=== PATIENT | female | born 1950 | race Caucasian/White ===

== ENCOUNTER 2022-07-04 09:28 | Inpatient (IN) | payer MEDICARE, SELFPAY ==
[2022-07-04] VITALS (14 sets, daily range): BP systolic 148–201; BP diastolic 69–82; PULSE 72–84; RESP 16–22; TEMP 36.8–37.2; O2SAT 92–97; BMI 34.9; BMI 36.6
--- NOTE | 2022-07-04 09:33 | ECG_ITS ---
APPROVED REPORT Exam: Resting ECG HR:74 bpm ECG Measurements Heart Rate 74 AXES ND 117 P 50 QRSd 98 QRS 45 QT 388 T 171 QTc 416 Conclusion SINUS RHYTHM WITH SHORT ND INTERVAL LEFT VENTRICULAR HYPERTROPHY AND ST-T CHANGE [VOLTAGE CRITERIA PLUS ST/T ABNORMALITY] ABNORMAL ECG UNCONFIRMED REPORT Electronically signed by : Jose Carlos Bah MD 07/05/2022 07:45:41
--- NOTE | 2022-07-04 09:33 | HMH.EDGENADL ---
Discharge Plan Disposition Chief Complaint: Shortness of Breath/Dyspnea Clinical Impressions Clinical Impression: Pulmonary edema, Bilateral pleural effusion, Decompensated heart failure, Hypoxemia, MADAY (acute kidney injury), Acute UTI Discharge ED Provider: David Grissom General Adult HPI General Chief complaint: Shortness of Breath/Dyspnea Stated complaint: soa Time Seen by Provider: 07/04/22 09:34 History of Present Illness HPI narrative: Patient is a 71-year-old presenting from [facility] for hypoxemia. Patient has dementia at baseline and history is limited. She and EMS state that she was found to be hypoxic with 70s on room air this morning patient is not on home oxygen she denies any history of any COPD or CHF but did not have any old records to confirm or deny this. She denies any fevers chills or cough but does states she has had bilateral lower extremity swelling for an undifferentiated period of time. She was on 4 L nasal cannula with sats in the 90s upon arrival. Related Data Allergies Allergy/AdvReac Type Severity Reaction Status Date / Time benzocaine Allergy Verified 07/04/22 09:49 [From Chloraseptic Sore Throat] ciprofloxacin [From Cipro] Allergy Verified 07/04/22 09:49 diazepam [From Valium] Allergy Verified 07/04/22 09:49 ibuprofen [From Motrin] Allergy Verified 07/04/22 09:49 menthol Allergy Verified 07/04/22 09:49 morphine Allergy Verified 07/04/22 09:49 nitrofurantoin Allergy Verified 07/04/22 09:49 [From Macrobid] ondansetron [From Zofran] Allergy Verified 07/04/22 09:49 propoxyphene Allergy Verified 07/04/22 09:49 sulfamethoxazole Allergy Verified 07/04/22 09:49 [From Bactrim] trimethoprim [From Bactrim] Allergy Verified 07/04/22 09:49 [facility] Disclaimer: The information contained in this section may have been updated after the patient was seen, as this information can be updated by other users. Social History Smoking Status: Never smoker alcohol intake: never current occupational status: other Travel in the last 8 weeks: None ROS Obtained: Yes All systems reviewed & no additional complaints except as documented Physical Exam General General appearance: alert and in no apparent distress Respiratory Respiratory exam: Present normal lung sounds bilaterally and other (Pulse ox on room air was 75, 5 L in the low 90s); Absent respiratory distress Cardiovascular Cardiovascular exam: Present regular rate and other (Bilateral lower extremity pitting edema diminished base lung sounds); Absent tachycardia Abdominal Exam Abdominal exam: Present soft; Absent tenderness Neurological Exam Neurological exam: Present alert Medical Decision Making Johny Inquiry Pt receiving controlled substance: No Vital Signs: 07/04/22 09:37 07/04/22 09:30 07/04/22 10:00 Temperature 98.4 F Temperature Source Oral Pulse Rate 76 72 Pulse Rate [Left] 75 Respiratory Rate 20 Blood Pressure 160/75 H 175/77 H Blood Pressure [Right Arm] 160/75 H Blood Pressure Mean 80 109 Blood Pressure Mean [Right Arm] 103 02 Sat by Pulse Oximetry 92 L 93 L 93 L Oxygen Delivery Method Nasal Cannula Nasal Cannula Nasal Cannula Oxygen Flow Rate (LPM) 4 5 4 07/04/22 10:17 07/04/22 10:31 07/04/22 11:00 Temperature Temperature Source Pulse Rate 76 73 74 Pulse Rate [Left] Respiratory Rate 19 20 18 Blood Pressure 178/74 H 166/72 H 181/76 H Blood Pressure [Right Arm] Blood Pressure Mean 99 99 88 Blood Pressure Mean [Right Arm] 02 Sat by Pulse Oximetry 92 L 92 L 96 Oxygen Delivery Method Nasal Cannula Nasal Cannula Oxygen Flow Rate (LPM) 4 4 07/04/22 11:31 Temperature Temperature Source Pulse Rate 76 Pulse Rate [Left] Respiratory Rate 18 Blood Pressure 148/73 H Blood Pressure [Right Arm] Blood Pressure Mean 98 Blood Pressure Mean [Right Arm] 02 Sat by Pulse Oximetry 97 Oxygen Delivery Method Nasal Cannula
--- NOTE | 2022-07-04 09:34 | XR_ITS ---
FINAL REPORT CLINICAL HISTORY: Shortness of breath COMPARISON: None FINDINGS: A single portable view of the chest was obtained. Cardiomegaly is noted. There is mild pulmonary vascular congestion. The mediastinum is within normal limits. Mild bibasilar opacities may represent atelectasis or pneumonia. The bony thorax is intact. IMPRESSION: Mild bibasilar opacities, favor atelectasis or pneumonia. Reviewed, Interpreted and Dictated by Santo Bryan III, MD Transcribed by Thao Dimas Authenticated and [facility][1]
[2022-07-04 09:48] LABS: VBG Base Excess -3.7 mmol/L (-2.4-2.3); VBG HCO3 21.4 mmol/L (23-30); VBG Oxygen Saturation 94.7 % (50-70); VBG PCO2 36.9 mmol/L (35-51); VBG PH 7.38 mmol/L (7.31-7.41); VBG PO2 73.9 mmol/L (28-40); VBG Total CO2 22.5 mmol/L (23-27)
[2022-07-04 09:52] LABS: Basophils % 0.4 % (0.1-2.0); Hematocrit 28.9 % (37.0-47.0); Hemoglobin 9.4 g/dL (12.2-16.2); Lymphocytes # 1.8 K/mm3 (0.7-4.5); Lymphocytes % 27.3 % (10-50); Mean Corpuscular HGB Conc 32.6 g/dL (31.8-35.4); Mean Corpuscular Hemoglobin 30.8 pg (27.0-31.2); Mean Corpuscular Volume 94.5 fl (81-99); Mean Platelet Volume 8.1 fl (7.4-10.4); Monocytes # 0.3 K/mm3 (0.1-1.0); Monocytes % 5.3 % (1.7-9.3); Neutrophils # 4.4 K/mm3 (1.8-7.8); Neutrophils % 66.9 % (37.0-80.0); Platelet Count 448 K/mm3 (142-424); Red Blood Count 3.06 M/mm3 (4.20-5.40); Red Cell Distribution Width 14.2 % (11.5-17.5); White Blood Count 6.5 K/mm3 (4.8-10.8)
[2022-07-04 10:01] LABS: Magnesium 2.2 mg/dl (1.6-2.3)
--- NOTE | 2022-07-04 10:01 | PC.NURSE ---
Patient's BP 175/77. MD instructed to hold off on Nitro.
[2022-07-04 10:02] LABS: Alanine Aminotransferase 18 U/L (12-78); Albumin Level 3.5 g/dl (3.5-5.0); Albumin/Globulin Ratio 1.2 (1.1-1.8); Alkaline Phosphatase 82 U/L (38-126); Anion Gap 15.2 mEq/L (5-15); Aspartate Amino Transferase 25 U/L (14-36); Bilirubin,Total 0.6 mg/dl (0.2-1.3); Blood Urea Nitrogen 31 mg/dl (7-17); Carbon Dioxide 25 mmol/L (22.0-30.0); Chloride 101 mmol/L (98-107); Creatinine Clearance Estimated 38 mL/min (50-200); Estimated Glomerular Filt Rate 24 ml/min (>60); GFR (African American) 30 ML/MIN (>60); Glucose 151 mg/dl (74-100); Potassium 4.2 mmoL/L (3.5-5.1); Sodium 137 mmol/L (136-145); Total Protein,Serum 6.5 g/dl (6.3-8.2)
[2022-07-04 10:07] LABS: D-Dimer 1.87 ug/mL (0.0-0.5)
[2022-07-04 10:09] LABS: Microscopic, Urine URINE MICROSCOPIC (MICROSCOPIC)
[2022-07-04 10:11] LABS: Appearance,Urine CLEAR (Clear); Bilirubin,Urine Negative (Negative); Blood, Urine 1+ (Negative); Color,Urine YELLOW (Yellow); Glucose,Urine (UA) Negative (Negative); Ketones,Urine Negative (Negative); Leukocyte Esterase,Urine 2+ (Negative); Nitrate,Urine Negative (Negative); Protein,Urine 3+ (Negative)
[2022-07-04 10:17] LABS: NT Pro Brain Natriuretic Pep. 6960 pg/mL (0-125)
[2022-07-04 10:21] LABS: Bacteria,Urine 1+ /lpf; RBC,Urine Occasional #/hpf (0-3); Squamous Epithelial Cell,Urine Occasional #/hpf (0-5)
[2022-07-04 10:29] LABS: Troponin I < 0.01 ng/ml (0.00-0.034)
[2022-07-04 10:57] LABS: Coronavirus 19, PCR Not Detected (NotDetected); Influenza A, PCR Not Detected (NotDetected); Influenza B, PCR Not Detected (NotDetected)
--- NOTE | 2022-07-04 11:18 | PC.NURSE ---
spoke to care mangement for bed assignment
--- NOTE | 2022-07-04 11:33 | PC.NURSE ---
Rounded on patient; call light within reach
--- NOTE | 2022-07-04 12:14 | PC.NURSE ---
Report received from Alaina
--- NOTE | 2022-07-04 13:26 | PC.NURSE ---
Patient being transported up to the second floor accompanied by second floor staff
[2022-07-04 13:33] LABS: Troponin I < 0.01 ng/ml (0.00-0.034)
--- NOTE | 2022-07-04 13:33 | PC.NURSE ---
arrived to floor by stretcher from ED
[2022-07-04 16:17] LABS: Troponin I < 0.01 ng/ml (0.00-0.034)
--- NOTE | 2022-07-04 17:27 | EXP.HP ---
History of Present Illness *Admission Date: 07/04/22 *Reason for visit:: short of breath *History of present illness: Ms. Moore is a pleasant 71-year-old female with dementia who presents from [facility]. Presented because of hypoxia noted on routine vital check at her nursing facility today. She denies any cough, chest pain, nausea or vomiting. Work-up in the ER initiated with imaging and labs. Labs concerning for elevated BNP of approximately 7000. Chest imaging showing bilateral pleural effusions. Significant 3+ edema bilateral lower extremities. Labs also concerning for elevated creatinine at 2, with unknown baseline. Initiated on Lasix for diuresis. As well she was noted to be hypertensive but this improved prior to initiating treatment in the ER. ER consulted medicine for further management and admission. Patient has new 2 L oxygen requirement. After arriving to the floor, patient states she came from her niece's home in [place], knows she is at a hospital but not where. Does know her name and birthday however. Has no significant complaints at this time. Afebrile. Blood pressure improving to 164/69. Has already put out at least 1 L of urine [facility] Disclaimer: The information contained in this section may have been updated after the patient was seen, as this information can be updated by other users. Medical History Anxiety Breast cancer CVA (cerebral vascular accident) Dementia Diabetes mellitus type 2 in obese GERD (gastroesophageal reflux disease) HLD (hyperlipidemia) HTN (hypertension) Insomnia Major depressive disorder Osteoarthritis Family History No significant family history Social History Smoking Status: Never smoker alcohol intake: never current occupational status: other Travel in the last 8 weeks: None Review of Systems Review of Systems Review of systems (narrative): 14 point review of systems performed, pertinent positives and negatives as per HPI Meds Home Medications and Allergies Home Medications Medication Instructions Recorded Confirmed Type acetaminophen 650 mg 650 mg PO Q12HP PRN OSTEOARTHRITIS 07/04/22 07/04/22 History tablet,extended release alendronate 70 mg tablet 70 mg PO MATUTE osteoporosis prevention 07/04/22 07/04/22 History amlodipine 10 mg tablet 10 mg PO DAILY BLOOD PRESSURE 07/04/22 07/04/22 History anastrozole 1 mg tablet 1 mg PO DAILY HX OF BENIGN TUMORS 07/04/22 07/04/22 History atorvastatin 20 mg tablet 20 mg PO HS Cholesterol 07/04/22 07/04/22 History bisacodyl 10 mg rectal suppository 10 mg OH DAILYP PRN Constipation 07/04/22 07/04/22 History (Dulcolax (bisacodyl)) carvedilol 6.25 mg tablet 6.25 mg PO BID BLOOD PRESSURE 07/04/22 07/04/22 History clonidine HCl 0.1 mg tablet 0.1 mg PO DAILY BLOOD PRESSURE 07/04/22 07/04/22 History dextromethorphan-guaifenesin 10 10 ml PO Q6HP PRN COUGH/CONGESTION 07/04/22 07/04/22 History mg-100 mg/5 mL oral syrup ergocalciferol (vitamin D2) 1,250 1,250 mcg PO MATUTE Supplement 07/04/22 07/04/22 History mcg (50,000 unit) capsule escitalopram oxalate 20 mg tablet 20 mg PO DAILY Depression 07/04/22 07/04/22 History insulin aspart U-100 100 unit/mL 0 unit SQ ACHS Diabetes 07/04/22 07/04/22 History subcutaneous solution lactulose 20 gram/30 mL oral 20 g PO Q8HP PRN Constipation 07/04/22 07/04/22 History solution melatonin 5 mg tablet 5 mg PO HSP PRN Insomnia 07/04/22 07/04/22 History omeprazole 20 mg capsule,delayed 20 mg PO HS Acid reflux 07/04/22 07/04/22 History release oxybutynin chloride 15 mg 15 mg PO DAILY BLADDER 07/04/22 07/04/22 History tablet,extended release 24 hr trazodone 50 mg tablet 50 mg PO HS Insomnia 07/04/22 07/04/22 History New Prescriptions to Start Prescriptions: Allergies Allergy/AdvReac Type Severity
--- NOTE | 2022-07-04 17:42 | PC.NURSE ---
1550 mls of urine out since arriving to the floor
--- NOTE | 2022-07-04 17:43 | PC.NURSE ---
Pt is alert to self. She remains on 4L NC with O2 sats measuring > 93%.Her noland is to bedside draining clear, pale urine. DNR status verified with pts son who is poa. Consent is signed an on the chart. He was updated on poc. BP has been elevated. 170/82 manually at last check. 0.1mg of clonidine administered per mar. She currently denies any complaints. Bed is locked and in the lowest position, call light is within reach.
[2022-07-04 20:00] LABS: Hemoglobin A1C 6.3 % (4.0-6.0)
[2022-07-04 20:06] LABS: Chloride 99 mmol/L (98-107); Sodium 134 mmol/L (136-145)
[2022-07-04 20:09] LABS: Blood Urea Nitrogen 29 mg/dl (7-17); Calcium 8.8 mg/dl (8.4-10.2); Carbon Dioxide 24 mmol/L (22.0-30.0); Creatinine Clearance Estimated 32 mL/min (50-200); Estimated Glomerular Filt Rate 23 ml/min (>60); GFR (African American) 28 ML/MIN (>60); Glucose 170 mg/dl (74-100)
[2022-07-04 21:38] LABS: POC Glucose,Bedside 180 (70-110)
--- NOTE | 2022-07-05 02:52 | PC.NURSE ---
Patient strangled on water when taking night time meds, HOB was up 45 degrees. Patient is mildly confused. States age as 40. 02 sats 93-98 % on 4lnc. Crackles noted in lungs. 3+ edema noted BLEs R>L. BP elevated at 2000. received Coreg 6.25 mg po at 2100, BP improved. No c/o pain.
[2022-07-05 04:00] VITALS: BMI 37.1
[2022-07-05 05:41] LABS: POC Glucose,Bedside 164 (70-110)
--- NOTE | 2022-07-05 07:23 | EXP.ACUTE.PN ---
Subjective *Date: 07/05/22 *Time: 11:03 Interval history: Patient has done well overnight with impressive diuresis. -2 L in the past 24 hours. Tolerating 4 L nasal cannula on morning rounds with saturations in the high 90s, weaned to 3 L nasal cannula. Urine showing growth with over 100,000 gram-negative rods. Patient pleasant on exam this morning. In no distress. No fever, chest pain, nausea or vomiting. Medical Exam Vital signs and Labs for Last 24 Hours: Vital Signs Temp Pulse Pulse Resp BP BP Pulse Ox 07/04/22 20:00 99.0 F 84 18 186/74 H 93 L 07/04/22 20:00 94 L 07/04/22 16:00 98.2 F 80 22 170/82 H 94 L 07/04/22 14:00 99.0 F 75 22 155/73 H 95 07/04/22 13:33 98.4 F 72 16 164/69 H 07/04/22 13:00 72 16 164/69 H 95 07/04/22 12:31 78 20 169/73 H 94 L 07/04/22 12:01 76 19 171/70 H 95 07/04/22 11:31 76 18 148/73 H 97 07/04/22 11:00 74 18 181/76 H 96 07/04/22 10:31 73 20 166/72 H 92 L 07/04/22 10:17 76 19 178/74 H 92 L 07/04/22 10:00 72 175/77 H 93 L 07/04/22 09:30 98.4 F 75 20 201/78 H 93 L 07/04/22 09:37 76 160/75 H 92 L Intake and Output 07/04/22 07/04/22 07/05/22 15:59 23:59 07:59 Intake Total 60 / 300 240 / 240 Output Total 1000 / 1950 950 / 1950 350 / 350 Balance -1000 / -1650 -890 / -1650 -110 / -110 Intake: Intake, Oral Amount 60 / 300 240 / 240 Output: Output, Urine Amount 1000 / 1950 950 / 1950 350 / 350 Other: Number of Unmeasured Voids 1 0 Number of Bowel Movements 1 Weight 85.077 kg 85.865 kg Patient Weight 07/05/22 23:59 Weight 85.865 kg Laboratory Results - last 24 hr 07/04/22 09:35: WBC 6.5, RBC 3.06 L, Hgb 9.4 L, Hct 28.9 L, MCV 94.5, MCH 30.8, MCHC 32.6, RDW 14.2, Plt Count 448 H, MPV 8.1, Neut % (Auto) 66.9, Lymph % (Auto) 27.3, [place] % (Auto) 5.3, Eos % (Auto) 0.0 L, Baso % (Auto) 0.4, Neut # (Auto) 4.4, Lymph # (Auto) 1.8, [place] # (Auto) 0.3, Eos # (Auto) 0.0, Baso # (Auto) 0.0 07/04/22 09:35: D-Dimer 1.87 H 07/04/22 09:35: Sodium 137, Potassium 4.2, Chloride 101, Carbon Dioxide 25, Anion Gap 15.2 H, BUN 31 H, Creatinine 2.00 H, Estimated Creat Clear 38, Estimated GFR 24 L, Est GFR ( Amer) 30 L, Glucose 151 H, Calcium 9.0, Total Bilirubin 0.6, AST 25, ALT 18, Alkaline Phosphatase 82, Troponin I < 0.01, NT-Pro-B Natriuret Pep 6960 H, Total Protein 6.5, Albumin 3.5, Globulin 3.0, Albumin/Globulin Ratio 1.2 07/04/22 09:35: VBG pH 7.38, VBG pCO2 36.9, VBG pO2 73.9 H, VBG HCO3 21.4 L, VBG Total CO2 22.5 L, VBG O2 Saturation 94.7 H, VBG Base Excess -3.7 L 07/04/22 09:35: Magnesium 2.2 07/04/22 09:35: Hemoglobin A1c 6.3 H 07/04/22 09:41: Urine Color Yellow, Urine Appearance Clear, Urine pH 7.0, Ur Specific [place] 1.020, Urine Protein 3+, Urine Glucose (UA) Negative, Urine Ketones Negative, Urine Blood 1+, Urine Nitrate Negative, Urine Bilirubin Negative, Urine Urobilinogen 1.0, Ur Leukocyte Esterase 2+ A, Urine RBC Occasional, Urine WBC 10-20, Ur Squamous Epith Cells Occasional, Urine Bacteria 1+ 07/04/22 10:50: SARS-CoV-2 (PCR) Not detected, Influenza A Untype (PCR) Not detected, Influenza Type B (PCR) Not detected 07/04/22 12:50: Troponin I < 0.01 07/04/22 15:45: Troponin I < 0.01 07/04/22 19:50: Sodium 134 L, Potassium 4.0, Chloride 99, Carbon Dioxide 24, Anion Gap 15.0, BUN 29 H, Creatinine 2.10 H, Estimated Creat Clear 32, Estimated GFR 23 L, Est GFR ( Amer) 28 L, Glucose 170 H, Calcium 8.8 07/04/22 21:29: POC Glucose 180 H 07/05/22 05:23: POC Glucose 164 H I & O for Labs for Last 24 Hours: Intake & Output 07/02/22 07/03/22 07/04/22 07/05/22 23:59 23:59 23:59 23:59 Intake Total 60 / 300 240 / 240 Output Total 1950 / 1950 350 / 350 Balance -1890 / -1650 -110 / -110 Weight 85.077 kg 85.865 kg Microbiology Reports for the Last 24 Hours: Microbiology 07/04/22 09:41 Urine,Catheterized Urine Culture - Preliminary
[2022-07-05 07:32] VITALS: BP 146/64; PULSE 67; RESP 16; TEMP 36.4; O2SAT 97
[2022-07-05 09:45] LABS: Basophils % 0.5 % (0.1-2.0); Eosinophils % 0.7 % (0.1-12.0); Hematocrit 25.7 % (37.0-47.0); Lymphocytes # 1.2 K/mm3 (0.7-4.5); Lymphocytes % 21.6 % (10-50); Mean Corpuscular HGB Conc 32.1 g/dL (31.8-35.4); Mean Corpuscular Hemoglobin 30.9 pg (27.0-31.2); Mean Corpuscular Volume 96.1 fl (81-99); Mean Platelet Volume 7.9 fl (7.4-10.4); Monocytes # 0.4 K/mm3 (0.1-1.0); Monocytes % 6.5 % (1.7-9.3); Neutrophils # 3.9 K/mm3 (1.8-7.8); Neutrophils % 70.8 % (37.0-80.0); Platelet Count 394 K/mm3 (142-424); Red Blood Count 2.68 M/mm3 (4.20-5.40); Red Cell Distribution Width 14.2 % (11.5-17.5); White Blood Count 5.5 K/mm3 (4.8-10.8)
[2022-07-05 09:48] LABS: Hemoglobin 8.3 g/dL (12.2-16.2)
[2022-07-05 10:48] LABS: Alanine Aminotransferase 14 U/L (12-78); Albumin Level 2.8 g/dl (3.5-5.0); Albumin/Globulin Ratio 1.2 (1.1-1.8); Alkaline Phosphatase 61 U/L (38-126); Anion Gap 14.3 mEq/L (5-15); Aspartate Amino Transferase 23 U/L (14-36); Bilirubin,Total 0.4 mg/dl (0.2-1.3); Blood Urea Nitrogen 30 mg/dl (7-17); Calcium 8.5 mg/dl (8.4-10.2); Carbon Dioxide 26 mmol/L (22.0-30.0); Chloride 101 mmol/L (98-107); Creatinine Clearance Estimated 36 mL/min (50-200); Estimated Glomerular Filt Rate 26 ml/min (>60); GFR (African American) 31 ML/MIN (>60); Globulin 2.4 g/dL (1.3-3.2); Glucose 120 mg/dl (74-100); Potassium 4.3 mmoL/L (3.5-5.1); Sodium 137 mmol/L (136-145); Total Protein,Serum 5.2 g/dl (6.3-8.2)
[2022-07-05 11:12] LABS: POC Glucose,Bedside 145 (70-110)
--- NOTE | 2022-07-05 14:17 | PC.NURSE ---
pt is currently more alert this afternoon then she was this morning. She as able to feed herself lunch and visit with her son and . Still confused but more alert.
[2022-07-05 15:21] VITALS: BP 135/61; PULSE 74; RESP 16; TEMP 37.3; O2SAT 94
[2022-07-05 17:08] LABS: POC Glucose,Bedside 178 (70-110)
[2022-07-05 18:09] LABS: Chloride 97 mmol/L (98-107); Potassium 3.8 mmoL/L (3.5-5.1); Sodium 136 mmol/L (136-145)
[2022-07-05 18:12] LABS: Anion Gap 12.8 mEq/L (5-15); Blood Urea Nitrogen 28 mg/dl (7-17); Calcium 9.1 mg/dl (8.4-10.2); Carbon Dioxide 30 mmol/L (22.0-30.0); Creatinine Clearance Estimated 31 mL/min (50-200); Estimated Glomerular Filt Rate 22 ml/min (>60); GFR (African American) 26 ML/MIN (>60); Glucose 177 mg/dl (74-100)
[2022-07-05 20:00] VITALS: BP 142/93; PULSE 79; RESP 18; TEMP 37.2; O2SAT 94
[2022-07-05 20:28] LABS: POC Glucose,Bedside 196 (70-110)
--- NOTE | 2022-07-06 03:42 | PC.NURSE ---
RESTING IN BED. NO COMPLAINTS VOICED. FINE CRACKLES NOTED AT LUNG BASES, OCCASSIONAL DRY COUGH. O2 IN USE 3LNC.
[2022-07-06 04:00] VITALS: BP 155/73; PULSE 74; RESP 18; TEMP 37.1; O2SAT 97; BMI 34.6
[2022-07-06 05:29] LABS: POC Glucose,Bedside 148 (70-110)
[2022-07-06 06:47] LABS: Basophils % 0.3 % (0.1-2.0); Eosinophils % 0.1 % (0.1-12.0); Mean Platelet Volume 7.6 fl (7.4-10.4); Red Cell Distribution Width 14.2 % (11.5-17.5)
[2022-07-06 06:53] LABS: Hematocrit 27.9 % (37.0-47.0); Lymphocytes # 1.3 K/mm3 (0.7-4.5); Lymphocytes % 19.9 % (10-50); Mean Corpuscular HGB Conc 32.2 g/dL (31.8-35.4); Mean Corpuscular Hemoglobin 30.6 pg (27.0-31.2); Mean Corpuscular Volume 94.9 fl (81-99); Monocytes # 0.3 K/mm3 (0.1-1.0); Monocytes % 5.3 % (1.7-9.3); Neutrophils # 4.8 K/mm3 (1.8-7.8); Neutrophils % 74.4 % (37.0-80.0); Platelet Count 410 K/mm3 (142-424); Red Blood Count 2.94 M/mm3 (4.20-5.40); White Blood Count 6.5 K/mm3 (4.8-10.8)
[2022-07-06 06:57] LABS: Alanine Aminotransferase 13 U/L (12-78); Albumin/Globulin Ratio 1.1 (1.1-1.8); Alkaline Phosphatase 69 U/L (38-126); Anion Gap 14.8 mEq/L (5-15); Aspartate Amino Transferase 22 U/L (14-36); Bilirubin,Total 0.4 mg/dl (0.2-1.3); Blood Urea Nitrogen 28 mg/dl (7-17); Calcium 8.5 mg/dl (8.4-10.2); Carbon Dioxide 28 mmol/L (22.0-30.0); Chloride 98 mmol/L (98-107); Creatinine Clearance Estimated 29 mL/min (50-200); Estimated Glomerular Filt Rate 22 ml/min (>60); GFR (African American) 26 ML/MIN (>60); Globulin 2.7 g/dL (1.3-3.2); Glucose 139 mg/dl (74-100); Magnesium 1.8 mg/dl (1.6-2.3); Potassium 3.8 mmoL/L (3.5-5.1); Sodium 137 mmol/L (136-145); Total Protein,Serum 5.7 g/dl (6.3-8.2)
--- NOTE | 2022-07-06 07:29 | XR_ITS ---
PROCEDURE INFORMATION: Exam: XR Chest Exam date and time: 07/06/2022 8:04 AM Age: 71 years old Clinical indication: Dyspnea TECHNIQUE: Imaging protocol: Radiologic exam of the chest. Views: 1 view. COMPARISON: CR XR CHEST PORTABLE 07/04/2022 9:37 AM FINDINGS: Lungs: Opacities in both bases may represent atelectasis or pneumonia.. Pleural spaces: There may be mild bilateral pleural effusions. Heart/Mediastinum: Stable cardiac silhouette Bones/joints: Unremarkable. IMPRESSION: 1. Opacities in both bases may represent atelectasis or pneumonia.. 2. There may be mild bilateral pleural effusions.
[2022-07-06 07:35] VITALS: BP 151/68; PULSE 68; RESP 18; TEMP 36.7; O2SAT 96
[2022-07-06 08:04] LABS: Vitamin B12 354 pg/mL (239-931)
[2022-07-06 08:10] LABS: Iron 42 ug/dL (37-170)
[2022-07-06 08:19] LABS: Total Iron Binding Capacity 221 ug/dL (265-497)
[2022-07-06 11:25] LABS: POC Glucose,Bedside 149 (70-110)
--- NOTE | 2022-07-06 11:47 | EXP.ACUTE.PN ---
Subjective *Date: 07/06/22 *Time: 12:23 Interval history: Pleasant on exam this morning. Weaned to 3 L on morning rounds. Sats still mid 90s. Denies any chest pain or shortness of breath. Pleasantly confused on exam. Incontinence, smells of urine this morning Medical Exam Vital signs and Labs for Last 24 Hours: Vital Signs Temp Pulse Resp BP Pulse Ox FiO2 07/06/22 07:35 98.1 F 68 18 151/68 H 96 07/06/22 04:00 98.8 F 74 18 155/73 H 97 07/05/22 20:00 94 L 07/05/22 20:00 98.9 F 79 18 142/93 H 94 L 07/05/22 18:49 32 07/05/22 15:21 99.2 F 74 16 135/61 94 L Intake and Output 07/05/22 07/06/22 07/06/22 23:59 07:59 15:59 Intake Total 360 / 1440 600 / 600 Output Total 0 / 1150 0 / 0 0 / 0 Balance 360 / 290 600 / 600 0 / 600 Intake: Intake, Oral Amount 360 / 1440 600 / 600 Output: Output, Urine Amount 0 / 1150 0 / 0 0 / 0 Other: Number of Unmeasured Voids 0 1 1 Weight 79.968 kg Patient Weight 07/06/22 23:59 Weight 79.968 kg Laboratory Results - last 24 hr 07/05/22 16:49: POC Glucose 178 H 07/05/22 18:00: Sodium 136, Potassium 3.8, Chloride 97 L, Carbon Dioxide 30, Anion Gap 12.8, BUN 28 H, Creatinine 2.20 H, Estimated Creat Clear 31, Estimated GFR 22 L, Est GFR ( Amer) 26 L, Glucose 177 H D, Calcium 9.1 07/05/22 20:20: POC Glucose 196 H 07/06/22 05:06: POC Glucose 148 H 07/06/22 06:25: WBC 6.5, RBC 2.94 L, Hgb 9.0 L, Hct 27.9 L, MCV 94.9, MCH 30.6, MCHC 32.2, RDW 14.2, Plt Count 410, MPV 7.6, Neut % (Auto) 74.4, Lymph % (Auto) 19.9, [place] % (Auto) 5.3, Eos % (Auto) 0.1, Baso % (Auto) 0.3, Neut # (Auto) 4.8, Lymph # (Auto) 1.3, [place] # (Auto) 0.3, Eos # (Auto) 0.0, Baso # (Auto) 0.0 07/06/22 06:25: Sodium 137, Potassium 3.8, Chloride 98, Carbon Dioxide 28, Anion Gap 14.8, BUN 28 H, Creatinine 2.20 H, Estimated Creat Clear 29, Estimated GFR 22 L, Est GFR ( Amer) 26 L, Glucose 139 H D, Calcium 8.5, Magnesium 1.8, Total Bilirubin 0.4, AST 22, ALT 13, Alkaline Phosphatase 69, Total Protein 5.7 L, Albumin 3.0 L, Globulin 2.7, Albumin/Globulin Ratio 1.1 07/06/22 06:25: Iron 42, TIBC 221 L, Iron Saturation 19.65253, Vitamin B12 354 07/06/22 11:12: POC Glucose 149 H I & O for Labs for Last 24 Hours: Intake & Output 07/03/22 07/04/22 07/05/22 07/06/22 23:59 23:59 23:59 23:59 Intake Total 60 / 300 840 / 1440 600 / 600 Output Total 1950 / 1950 1150 / 1150 0 / 0 Balance -1890 / -1650 -310 / 290 600 / 600 Weight 85.077 kg 85.865 kg 79.968 kg Microbiology Reports for the Last 24 Hours: Microbiology 07/04/22 09:41 Urine,Catheterized Urine Culture - Final Streptococcus species Constitutional: Present no acute distress, obese and chronically ill appearing Head: Present atraumatic and normocephalic Respiratory: Present crackles (Interval improvement in bilateral crackles, faint, end inspiratory.) and normal respiratory effort; Absent rhonchi or wheezes Cardiac: Present Reg Rate and Rhythm GI: Present normal bowel sounds; Absent tenderness Extremities: Present normal inspection, full ROM and edema (1+ to knees today); Absent tenderness Skin: Present intact; Absent erythema Neuro: Present Grossly Intact, alert, awake and moves all extremities Assessment and Plan *Assessment and plan (1) Acute on chronic diastolic (congestive) heart failure: Status: Acute Category: Medical Code(s): I50.33 - Acute on chronic diastolic (congestive) heart failure (2) Volume overload: Status: Acute Category: Medical Code(s): E87.70 - Fluid overload, unspecified (3) Pulmonary edema: Status: Acute Category: Medical Code(s): J81.1 - Chronic pulmonary edema (4) Functional quadriplegia: Status: Acute Category: Medical Code(s): R53.2 - Functional quadriplegia (5) Bilateral pleural effusion: Status: Acute Category: Medical Code(s): J90 - Pleur
[2022-07-06 14:57] VITALS: BP 124/62; PULSE 77; RESP 18; TEMP 36.7; O2SAT 92
[2022-07-06 16:31] LABS: POC Glucose,Bedside 217 (70-110)
[2022-07-06 19:03] LABS: Chloride 104 mmol/L (98-107); Potassium 4.2 mmoL/L (3.5-5.1); Sodium 137 mmol/L (136-145)
[2022-07-06 19:06] LABS: Anion Gap 9.2 mEq/L (5-15); Blood Urea Nitrogen 29 mg/dl (7-17); Calcium 8.6 mg/dl (8.4-10.2); Carbon Dioxide 28 mmol/L (22.0-30.0); Creatinine Clearance Estimated 29 mL/min (50-200); Estimated Glomerular Filt Rate 22 ml/min (>60); GFR (African American) 26 ML/MIN (>60); Glucose 199 mg/dl (74-100)
[2022-07-06 20:00] VITALS: BP 150/64; PULSE 79; RESP 18; TEMP 37.1; O2SAT 97
[2022-07-06 21:14] LABS: POC Glucose,Bedside 199 (70-110)
--- NOTE | 2022-07-07 03:47 | PC.NURSE ---
Plan for today is for the patient to go back to [facility].
[2022-07-07 04:00] VITALS: BP 166/69; PULSE 72; RESP 20; TEMP 37.2; O2SAT 92; BMI 34.7
[2022-07-07 05:23] LABS: POC Glucose,Bedside 171 (70-110)
[2022-07-07 07:19] LABS: Basophils % 0.2 % (0.1-2.0); Eosinophils % 0.2 % (0.1-12.0); Hematocrit 25.6 % (37.0-47.0); Hemoglobin 8.5 g/dL (12.2-16.2); Lymphocytes # 1.8 K/mm3 (0.7-4.5); Lymphocytes % 25.1 % (10-50); Mean Corpuscular HGB Conc 33.4 g/dL (31.8-35.4); Mean Corpuscular Volume 92.9 fl (81-99); Monocytes # 0.4 K/mm3 (0.1-1.0); Monocytes % 5.3 % (1.7-9.3); Neutrophils % 69.2 % (37.0-80.0); Platelet Count 362 K/mm3 (142-424); Red Blood Count 2.75 M/mm3 (4.20-5.40); Red Cell Distribution Width 14.1 % (11.5-17.5); White Blood Count 7.2 K/mm3 (4.8-10.8)
[2022-07-07 07:28] LABS: Alanine Aminotransferase 19 U/L (12-78); Albumin Level 2.7 g/dl (3.5-5.0); Alkaline Phosphatase 58 U/L (38-126); Anion Gap 9.7 mEq/L (5-15); Aspartate Amino Transferase 26 U/L (14-36); Bilirubin,Total 0.2 mg/dl (0.2-1.3); Blood Urea Nitrogen 29 mg/dl (7-17); Carbon Dioxide 30 mmol/L (22.0-30.0); Chloride 104 mmol/L (98-107); Creatinine Clearance Estimated 29 mL/min (50-200); Estimated Glomerular Filt Rate 22 ml/min (>60); GFR (African American) 26 ML/MIN (>60); Globulin 2.6 g/dL (1.3-3.2); Glucose 121 mg/dl (74-100); Potassium 3.7 mmoL/L (3.5-5.1); Sodium 140 mmol/L (136-145); Total Protein,Serum 5.3 g/dl (6.3-8.2)
[2022-07-07 07:49] LABS: Magnesium 1.8 mg/dl (1.6-2.3)
--- NOTE | 2022-07-07 07:56 | SW/DCPLANNER ---
This patient currently resides at [facility]. Updated patient information will be faxed to Carlene espinal/ [facility] this AM. Discharge date is unknown at this time.
[2022-07-07 08:00] VITALS: BP 145/63; PULSE 68; RESP 20; TEMP 36.9; O2SAT 93
--- NOTE | 2022-07-07 08:49 | EXP.DC.SUM ---
General Admission date:: 07/04/22 Discharge date: 07/07/22 HPI HPI HPI: Ms. Moore is a pleasant 71-year-old female with dementia who presents from [facility]. Presented because of hypoxia noted on routine vital check at her nursing facility today. She denies any cough, chest pain, nausea or vomiting. Work-up in the ER initiated with imaging and labs. Labs concerning for elevated BNP of approximately 7000. Chest imaging showing bilateral pleural effusions. Significant 3+ edema bilateral lower extremities. Labs also concerning for elevated creatinine at 2, with unknown baseline. Initiated on Lasix for diuresis. As well she was noted to be hypertensive but this improved prior to initiating treatment in the ER. ER consulted medicine for further management and admission. Patient has new 2 L oxygen requirement. After arriving to the floor, patient states she came from her niece's home in [place], knows she is at a hospital but not where. Does know her name and birthday however. Has no significant complaints at this time. Afebrile. Blood pressure improving to 164/69. Has already put out at least 1 L of urine Hospital Course Hospital Course Hospital Course: 71-year-old female with dementia and hypertension, presents with acute worsening of heart failure from [facility].? Patient was started on oxygen due to hypoxia during her hospital stay. She was medically managed for Acute on Chronic Diastolic Heart Failure, Hypoxia, Pleural effusions, Pulmonary edema, volume over load, hypertension, Urinary tract infection, Functional Quadriplegia, Chronic Kidney disease, Anemia, and Hyperglycemia. Responded well to the uresis. Problems addressed as follows: Acute on chronic diastolic heart failure Hypoxia Pleural effusions/pulmonary edema Volume overload Hypertension The patient showed significant volume overload on imaging upon arrival to the hospital.? Peripheral edema that was pitting and +3.? Pleural effusions and pulmonary edema on chest xray. Initiated on diuretic. The patient obtained an echo due to chronic diastolic heart failure disease and clinical presentation. The preliminary read with significantly elevated RVSP, EF preserved at > 55%; awaiting formal read. The patient responded well to diuresis, was started on Lasix and then transitioned to Bumex continue 1 mg twice daily.? The patient will be sent home with Bumex 1 mg daily orally. Patient should have BMP rechecked in 3 days to monitor kidney function. Addressed hypertension with diuresis, home Norvasc 10 mg daily, and continued carvedilol 6.25 mg BID. Continue supplemental oxygen with goal saturation greater 90%, currently on 2 L. Wean as tolerated. UTI Urine growing strep species, sensitive to Ceftriaxone and levaquin, due to allergies, continues ceftriaxone. Complete 3 more days after discharge for total of 5 days. She did not have any elevated white blood cell count during hospital admission. Functional quadriplegia Secondary to her dementia; requires near total care. The patient was refusing to be fed however is eating less than 50% of her meals, only eating 2 meals a day. Will require continued assistance with all ADL's. Alexi score of 13.? Incontinent CKD 4 -Creatinine 2.0 on admission. Stay 1.9 and 2.2 during hospital stay. Recommend repeat BMP in 3 days. Anemia Chronic illness. Evaluated B12 and Iron. Started patient on vitamin. Continue vitamin at discharge. Hyperglycemia Continued sliding scale insulin. A1C 6.3 Continue home meds for mood and sleep including melatonin 5 mg nightly, trazodone 50 mg nightly, and escitalopram 20 mg daily. Stable for discharge back to nursing facility. Patient has competing organ system dysfunction with her heart failure and chronic kidney disease. Would encourage considering goals of care discussion with family given her multiple comorbidities. Exam Data for Last 24 hours Vital signs and Labs
--- NOTE | 2022-07-07 09:56 | PC.NURSE ---
Family notified that pt will be transported back to [facility].
--- NOTE | 2022-07-07 10:07 | PC.NURSE ---
report called [facility]. ems notified of transport.
--- NOTE | 2022-07-08 13:53 | CARE MANAGER ---
[facility]ed [facility] follow up on patient following discharge. They state she is sleeping a lot, but is doing well. They deny any questions or concerns. CRISTA Oakes
== END 2022-07-07 10:34 | DRG 291 ==
LOC: ER 10:32 → 2ND 11:45
PROVIDERS: Admitting Provider Internal Medicine Adolescent Medicine; Emergency Provider Student in an Organized Health Care Education/Training Program; PCP Emergency Medicine; Visit Provider Internal Medicine Adolescent Medicine
DX: I13.0 Hypertensive heart and chronic kidney disease with heart failure and stage 1 through stage 4 chronic kidney disease, or unspecified chronic kidney disease (principal); I50.33 Acute on chronic diastolic (congestive) heart failure; R53.2 Functional quadriplegia; N17.9 Acute kidney failure, unspecified; N39.0 Urinary tract infection, site not specified; N18.4 Chronic kidney disease, stage 4 (severe); F03.90 Unspecified dementia, unspecified severity, without behavioral disturbance, psychotic disturbance, mood disturbance, and anxiety; Z86.73 Personal history of transient ischemic attack (TIA), and cerebral infarction without residual deficits; G47.00 Insomnia, unspecified; Z85.3 Personal history of malignant neoplasm of breast; F32.A Depression, unspecified; K21.9 Gastro-esophageal reflux disease without esophagitis; Z80.3 Family history of malignant neoplasm of breast; D63.1 Anemia in chronic kidney disease; E11.65 Type 2 diabetes mellitus with hyperglycemia
CPT/HCPCS: 36415; 51702; 71045; 80048; 80053; 81001; 82607; 82803; 82962; 83036; 83540; 83550; 83735; 83880; 84484; 85025; 85378; 87086; 87088; 87186; 87636; 93005; 93306; 99285; C9803; J0696; U0003; U0005

== ENCOUNTER → 2022-09-08 12:40 | Outpatient (CLI) | payer OTHER, SELFPAY ==
--- NOTE | 2022-09-08 12:43 | FL_ITS ---
FINAL REPORT CLINICAL HISTORY: dysphagia, ft 3:09 FINDINGS: MODIFIED BARIUM SWALLOW HISTORY: Dysphagia. FINDINGS: Fluoroscopy was provided for the speech pathologist to evaluate the swallowing mechanism. The patient was given several different consistencies of barium while the swallow was visualized fluoroscopically. The report of the speech pathologist should be consulted prior to making dietary decisions. IMPRESSION: Modified barium swallow under fluoroscopic guidance. Please see speech pathologist's report for further details and dietary recommendations. Fluoroscopy time was 3 minutes, 9 seconds A single image was saved. Reviewed, Interpreted and Dictated by Mary Phelan MD Transcribed by Pamella Chiang PA-C Authenticated and [facility]
--- NOTE | 2022-09-08 14:40 | HMH.SLMBS2 ---
Speech & Language Evaluation Speech/Language Mod Barium Swallow Start: 09/08/22 14:16 Freq: once Status: Complete Protocol: Document 09/08/22 14:16 SHABBIR (Rec: 09/08/22 14:40 SHABBIR [id number]) General Information General Current Food Consistency Regular,Thin Liquids Dentition Edentulous Oxygen Status Room Air Facial Symmetry Symmetrical Patient Orientation Person,Place,Time,Situation Ability to Follow Directions Excellent Communication Ability No Impairment MBS Recommendations Diet Dietary Recommendations Mechanical Soft,Thin Liquids Treatment/Strategies Strategy/Precaution Recommend Sitting Upright (90 deg),Small Bites and Sips,Alternate Liquids/Solids Referrals/Other Recommended Referrals GI Consult Mod Barium Swallow Impressions Summary and Impressions Oral Phase Impression Minimal Impairment Oral Phase Summary Minimally impaired pharyngeal phase of the swallow. Prolonged mastication of solids 2' lack of dentiton. Mild oral stasis in on the tongue and lateral sulci 2' reduced tongue control. Minimally prolonged AP tranisit time. Pharyngeal Phase Impression Minimal Impairment Pharyngeal Phase Summary Minimal pharyngeal impairment. No penetration or aspiration noted during the study. Decreased epiglottic inversion 2' decreased hyolaryngeal movement. Prominent cervical anatomy mildly impacting bolus flow through the UES. Adequate PPW stripping, but reduced BOT retraction. Speech/Language MBS Assessment/Goals/Plan Assessment Date of Evaluation: 09/08/22 Evaluation Type Initial Certification Assessment/Problems Dysphagia per MD order. Does Patient Qualify for Service No Qualify/Failure Comment Based on the results of the MBSS, no further skilled ST services are warranted at this time. Recommendations PHYSICIAN CERTIFICATION: The specified therapy services are required, authorized, and reviewed every 30 days. Diet Recommendations Mechanical Soft Liquid Type Recommendations Normal/Thin SL Swallow Guidelines Standard Aspiration Prec. Dysphagia Swallow Precautions/Strategies Sitting Upright (90 deg),Small
== END ==
PROVIDERS: PCP Emergency Medicine; Visit Provider Emergency Medicine
DX: R13.10 Dysphagia, unspecified (principal)
CPT/HCPCS: 70371; 92611

== ENCOUNTER 2023-06-19 13:48 | Emergency (ER) | payer MEDICARE, MEDICAID, SELFPAY ==
[2023-06-19] VITALS (10 sets, daily range): BP systolic 108–198; BP diastolic 70–92; PULSE 75–80; RESP 15–16; TEMP 36.6–36.7; O2SAT 97–100; BMI 27.3
--- NOTE | 2023-06-19 15:16 | XR_ITS ---
FINAL REPORT CLINICAL HISTORY: concern for aspiration COMPARISON: 07/06/2022 FINDINGS: No acute pulmonary opacity is present. There is no evidence of effusion or pneumothorax. Note is made of dextroscoliosis. Mediastinum is unremarkable. Heart size is normal. IMPRESSION: No acute abnormality. Reviewed, Interpreted and Dictated by Mary Phelan MD Transcribed by Radha Santos Authenticated and [facility]
--- NOTE | 2023-06-19 15:25 | XR_ITS ---
FINAL REPORT CLINICAL HISTORY: concern for FB sensation FINDINGS: NECK SOFT TISSUE AP and lateral views of the neck soft tissues were obtained. There is an unusual elongated density overlying the epiglottis which could represent artifact or foreign body. The airway is normal, without evidence of narrowing. No soft tissue mass is seen. There is no radiopaque foreign body identified. IMPRESSION: Unusual, elongated density overlying the epiglottis which could represent artifact or foreign body. Consider noncontrast CT for further evaluation. Reviewed, Interpreted and Dictated by Mary Phelan MD Transcribed by Ariadna Kendrick Authenticated and [facility]
--- NOTE | 2023-06-19 15:25 | HMH.EDGENADL ---
Discharge Plan Disposition Patient Disposition: Home, Self-Care Chief Complaint: Dental/Oral Prescriptions Prescriptions: No Action metoclopramide HCl [Reglan] 5 mg tablet 5 mg PO TID Rx Instructions: administer 30 minutes before meals alendronate 35 mg tablet 35 mg PO WEEKLY Qty: 5 2RF calcium carbonate [Calcium 600] 600 mg calcium (1,500 mg) tablet 600 mg PO DAILY sennosides-docusate sodium [Senna-S] 8.6-50 mg tablet 1 tab-cap PO BID nystatin 100,000 unit/gram powder 1 applic topical BID Qty: 15 0RF melatonin 3 mg capsule 3 mg PO HS anastrozole 1 mg tablet 1 mg PO DAILY atorvastatin 20 mg tablet 20 mg PO HS trazodone 50 mg tablet 50 mg PO HS omeprazole 20 mg capsule,delayed release(DR/EC) 20 mg PO HS escitalopram oxalate 20 mg tablet 20 mg PO DAILY acetaminophen 650 mg Tablet Extended Release 650 mg PO Q12HP PRN (Reason: OSTEOARTHRITIS) carvedilol 6.25 mg Tablet 6.25 mg PO BID Rx Instructions: must administer with a meal/food oxybutynin chloride 15 mg Tablet Extended Release 24hr 15 mg PO DAILY amlodipine 10 mg Tablet 10 mg PO DAILY ergocalciferol (vitamin D2) 1,250 mcg (50,000 unit) Capsule 1,250 mcg PO MATUTE lactulose 20 gram/30 mL Solution 20 g PO Q8HP PRN (Reason: Constipation) Vitamin 27 mg iron- 800 mcg Tablet 1 ea PO 1700 Qty: 0 0RF bumetanide 1 mg tablet 1 mg PO DAILY Qty: 30 0RF Referrals Follow up/Referrals: Caleb Sweeney MD [Primary Care Provider] - See instructions Clinical Impressions Clinical Impression: Foreign body in throat Discharge ED Provider: Arpan Lord General Adult HPI General Chief complaint: Dental/Oral Stated complaint: Choking Time Seen by Provider: 06/19/23 15:15 Mode of Arrival: EMS Source of Information: Patient and EMS Limitations: No Limitations Description of Symptoms (Recalled from ER Triage Doc. by RN): pt presents to ED via [facility] for trouble swallowing. ems reports pt had a choking incident last night. this afternoon at lunch, pt had another episode of dysphagia. History of Present Illness HPI narrative: Please note that above description of symptoms, in this electronic medical record under categorization of recalled from ER triage doctor by RN are reflective of an initial nursing assessment, however, is not reflective of my full history and physical exam that was personally taken and clarified. Consequentially, this preceding description of symptoms, which may include the patient's categorized chief complaint in the EMR, do not reflect my personal clinical impression, and the ultimate description of history of present illness and patient stated complaints should be deferred to this section of the note. Unless stated otherwise or congruent with this section of the note, additional signs, symptoms, or incongruence should be interpreted as inaccurate with my clinical impression. Related Data Home Medications Medication Instructions Recorded Confirmed acetaminophen 650 mg 650 mg PO Q12HP PRN OSTEOARTHRITIS 07/04/22 05/20/23 tablet,extended release amlodipine 10 mg tablet 10 mg PO DAILY BLOOD PRESSURE 07/04/22 05/20/23 anastrozole 1 mg tablet 1 mg PO DAILY HX OF BENIGN TUMORS 07/04/22 05/20/23 atorvastatin 20 mg tablet 20 mg PO HS Cholesterol 07/04/22 05/20/23 carvedilol 6.25 mg tablet 6.25 mg PO BID BLOOD PRESSURE 07/04/22 05/20/23 ergocalciferol (vitamin D2) 1,250 1,250 mcg PO MATUTE Supplement 07/04/22 05/20/23 mcg (50,000 unit) capsule escitalopram oxalate 20 mg tablet 20 mg PO DAILY Depression 07/04/22 05/20/23 lactulose 20 gram/30 mL oral 20 g PO Q8HP PRN Constipation 07/04/22 05/20/23 solution omeprazole 20 mg capsule,delayed 20 mg PO HS Acid reflux 07/04/22 05/20/23 release oxybutynin chloride 15 mg 15 mg PO DAILY BLADDER 07/04/22 05/20/23 tablet,extended release 24 hr trazodone 50 mg tablet 50 mg PO HS Insomnia 07/04/22 05/20/23 metoclopramide HCl 5 mg tablet 5 mg PO TID 10/02/22 05/20/23 (Reglan) calcium carbonate (Calcium 600) 600 mg PO DAILY 03/06/23 05/20/23 melatonin 3 mg capsule 3 mg PO HS 03/06/23 05/20/23 sennosides 8.6 mg-docusate sodium 1 tab-cap PO BID 03/06/23 05/20/23 50 mg tablet (Senna-S) Previous Rx's Medication Instructions Recorded bumetanide 1 mg tablet 1 mg PO DAILY #30 tabs 07/07/22 vits no.130-ferrous fum 1 ea PO 1700 #0 tabs 07/07/22 27 mg iron-folic acid 800 mcg tablet ( Vitamin) alendronate 35 mg tablet 35 mg PO WEEKLY #5 tabs 03/06/23 nystatin 100,000 unit/gram topical 1 applic topical BID #15 grams 03/06/23 powder Allergies Allergy/AdvReac Type Severity Reaction Status Date / Time phenol [From Chloraseptic] Allergy Unknown Verified 05/20/23 12:01 benzocaine Allergy Verified 05/20/23 12:01 [From Chloraseptic Sore Throat] ciprofloxacin [From Cipro] Allergy Verified 05/20/23 12:01 diazepam [From Valium] Allergy Verified 05/20/23 12:01 ibuprofen [From Motrin] Allergy Verified 05/20/23 12:01 menthol Allergy Verified 05/20/23 12:01 morphine Allergy Verified 05/20/23 12:01 nitrofurantoin Allergy Verified 05/20/23 12:01 [From Macrobid] ondansetron [From Zofran] Allergy Verified 05/20/23 12:01 propoxyphene Allergy Verified 05/20/23 12:01 sulfamethoxazole Allergy Verified 05/20/23 12:01 [From Bactrim] trimethoprim [From Bactrim] Allergy Verified 05/20/23 12:01 PFSH [facility] Disclaimer: The information contained in this section may have been updated after the patient was seen, as this information can be updated by other users. Medical History Osteoarthritis Insomnia Breast cancer GERD (gastroesophageal reflux disease) Dementia Anxiety Major depressive disorder HTN (hypertension) HLD (hyperlipidemia) Diabetes mellitus type 2 in obese CVA (cerebral vascular accident) Family History Other No significant family history Social History Smoking Status: Never smoker second hand exposure: No alcohol intake: never substance use type: denies use current occupational status: disabled Travel in the last 8 weeks: None housing: shelter ROS Obtained: Yes All systems reviewed & no additional complaints except as documented Physical Exam General General appearance: alert and in no apparent distress Head Head exam: atraumatic and normocephalic Eye Eye exam: Present normal appearance, PERRL and EOMI ENT ENT exam: Present mucous membranes dry Neck Neck exam: Present normal inspection, full ROM and trachea midline Respiratory Respiratory exam: Present normal lung sounds bilaterally; Absent respiratory distress, wheezes, stridor, accessory muscle use or prolonged expiratory phase Cardiovascular Cardiovascular exam: Present regular rate and normal rhythm Abdominal Exam Abdominal exam: Present soft; Absent distention, tenderness, guarding, rebound or rigidity Extremities Exam Extremities exam: Absent edema Neurological Exam Neurological exam: Present alert, oriented X3, CN II-XII intact and normal gait; Absent motor sensory deficit Skin Skin exam: Present warm and dry; Absent diaphoresis or erythema Medical Decision Making Medical Records Medical records reviewed: Yes I reviewed the patient's medical records. Johny Inquiry Pt receiving controlled substance: No Johny was queried for this patient: No Vital Signs: 06/19/23 13:48 06/19/23 14:00 06/19/23 14:15 Temperature 97.8 F Temperature Source Oral Pulse Rate 77 75 Pulse Rate [Left Radial] 77 Respiratory Rate 15 Blood Pressure 182/78 H 108/75 L Blood Pressure [Right Arm] 185/78 H Blood Pressure Mean [Right Arm] 113 02 Sat by Pulse Oximetry 98 98 98 Oxygen Delivery Method Room Air 06/19/23 14:31 06/19/23 15:00 06/19/23 15:31 Temperature Temperature Source Pulse Rate 76 78 77 Pulse Rate [Left Radial] Respiratory Rate Blood Pressure 181/76 H 191/82 H 196/70 H Blood Pressure [Right Arm] Blood Pressure Mean [Right Arm] 02 Sat by Pulse Oximetry 99 100 99 Oxygen Delivery Method Room Air Room Air Room Air 06/19/23 16:01 06/19/23 17:01 Temperature Temperature Source Pulse Rate 76 80 Pulse Rate [Left Radial] Respiratory Rate Blood Pressure 178/74 H 198/92 H Blood Pressure [Right Arm] Blood Pressure Mean [Right Arm] 02 Sat by Pulse Oximetry 99 99 Oxygen Delivery Method Room Air Room Air Orders (Tests/Meds): ED MEDICATIONS Discontinued Medications Generic Name Dose Route Start Last Admin Trade Name Freq PRN Reason Stop Dose Admin Lidocaine HCl 1 ml 06/19/23 15:47 06/19/23 16:24 Lidocaine 4% Topical Soln 1ml TP 06/19/23 15:48 1 ml ONCE ONE Administration ORDERS Category Date Time Status CT soft tissue neck wo con Stat Cat Scan 06/19/23 16:23 Completed Neck soft tissue XR [XR soft tissue neck] Stat Exams 06/19/23 15:25 Completed XR chest portable Stat Exams 06/19/23 15:16 Completed Medical Decision Narrative: 72-year-old female history of mention, hypertension, hyperlipidemia, CHF, CKD, dysphagia necessitating upper GI scopes and dilations presenting with concern for normal sensation. Patient states that she has been eating and drinking very well last couple days, but is tolerating p.o. intake. Today, she was eating much. Stress before arrival. She states that she tried to swallow, it got stuck in her throat, was able to swallow large pills after trying multiple liquids, denies aspiration. She states it felt like it came back up and got stuck in the back of her throat. Feels like it is still there. No range of motion of neck difficulties, fevers, chills, recent sick contacts, difficulty speaking, difficulty breathing, or any other concerns. History was obtained via conversation with patient and EMS. On arrival, patient hemodynamically stable, alert, oriented x4, appropriate, GCS 15, moving all extremities spontaneously, pupils equal and reactive to light. Full physical exam performed and significant for very well-appearing woman in no acute distress. No range of motion of neck difficulties, no stridor, no abnormal breath sounds, no acute distress. Voice is not muffled, patient appears very well. She does have pharyngeal erythema without tonsillitis or exudate, also has very dry mucous membranes. Differential includes foreign body sensation, viral pharyngitis, foreign body, esophageal diverticulum, among others. Patient was given topical lidocaine 4% for symptomatic management and correction of underlying abnormalities. Bedside nasopharyngeal scope difficult technically due to no light source and patient gagging/fogging up scope, but appears to be yellowish foreign body. Independent interpretation of workup 2 view chest and neck x-rays concerning for radiopaque foreign body in the glottis. CT of the neck with large foreign body. Prior to physical porcelain mixer of foreign body, patient coughed up foreign body that was approximately 3 cm x 4 cm x 0.5 cm. On reevaluation, patient feeling much better. Because patient at baseline without signs or symptoms of clinical decompensation, deemed appropriate for discharge. Results were relayed to patient who voiced understanding and were agreeable to outpatient management and follow up. I discussed my clinical impression with patient and answered all questions. At this time, the evidence for any other entities in the differential is insufficient to warrant any further testing or ED observation. This was explained as well. Advisory was given that persistent or worsening symptoms require further evaluation. I confirmed the understanding of this discussion. Critical Care Critical Care Time Critical Care Time: No
--- NOTE | 2023-06-19 16:23 | CT_ITS ---
PROCEDURE INFORMATION: Exam: CT Neck Without Contrast Exam date and time: 06/19/2023 4:32 PM Age: 72 years old Clinical indication: Other: Throat pain; Additional info: Negative scope, concern for R sided fb TECHNIQUE: Imaging protocol: Computed tomography of the neck without contrast. Radiation optimization: All CT scans at this facility use at least one of these dose optimization techniques: automated exposure control; mA and/or kV adjustment per patient size (includes targeted exams where dose is matched to clinical indication); or iterative reconstruction. COMPARISON: CR XR SOFT TISSUE NECK 06/19/2023 3:41 PM FINDINGS: Pharynx: 4.6 x 3.0 x 0.9 cm slightly radio-opaque foreign body in the hypopharynx, anterior to the epiglottis and partly extending into the proximal esophagus. No significant tonsillar enlargement. Larynx: Unremarkable. Epiglottis is normal. Prevertebral and retropharyngeal spaces: Unremarkable. Salivary glands: Normal. Glands are normal in size. Thyroid: 2.2 cm and 1.9 cm low-density left thyroid nodules. Lymph nodes: Unremarkable. No lymphadenopathy. Trachea: Visualized trachea is unremarkable. Lungs: Unremarkable as visualized. Esophagus: The above-mentioned foreign body partly extends into the proximal esophagus. Bones/joints: [id number] cervical spine degenerative change. Osteopenia. Vasculature: Moderate calcified plaque in the bilateral carotid bulbs. Soft tissues: Unremarkable. No significant soft tissue swelling. IMPRESSION: 1. 4.6 x 3.0 x 0.9 cm slightly radio-opaque foreign body in the hypopharynx, anterior to the epiglottis and partly extending into the proximal esophagus. 2. 2.2 cm and 1.9 cm low-density left thyroid nodules. Follow-up non-emergent thyroid ultrasound is recommended. COMMENTS: Consistent with the [employer]'s Incidental Findings Committee white paper (J Am Dale Radiol 2015): In patients aged 35 years and older with an incidental thyroid nodule equal to or greater than 1.[address], MRI or extrathyroidal US, further evaluation with dedicated thyroid US is recommended for patients with normal life expectancy and without comorbidities. For smaller nodules without suspicious features, no further evaluation or follow up is recommended.
[2023-06-19] MEDS: LIDOCAINE 4% TOPICAL SOLN 1ML 1 ML TP (16:24)
--- NOTE | 2023-06-19 17:15 | PC.NURSE ---
Pt was able to cough up the FB and shown to the provider.
--- NOTE | 2023-06-19 17:28 | PC.NURSE ---
Called report to Shameka @ [facility]. Notified [facility] of transport
== END 2023-06-19 18:19 ==
PROVIDERS: Emergency Provider Emergency Medicine; PCP Family Medicine
DX: T17.208A Unspecified foreign body in pharynx causing other injury, initial encounter (principal)
CPT/HCPCS: 70360; 70490; 71045; 99284

== ENCOUNTER 2023-10-31 10:39 | Inpatient (IN) | payer MEDICARE, MEDICAID, SELFPAY ==
[2023-10-31] VITALS (19 sets, daily range): BP systolic 115–181; BP diastolic 56–86; PULSE 69–99; RESP 18–20; TEMP 36.7–37.3; O2SAT 87–95; BMI 25.4; BMI 25.9
--- NOTE | 2023-10-31 10:38 | ECG_ITS ---
APPROVED REPORT Exam: Resting ECG HR:76 bpm ECG Measurements Heart Rate 76 AXES NE 136 P 64 QRSd 89 QRS 56 QT 406 T -27 QTc 436 Conclusion SINUS RHYTHM NONSPECIFIC T-WAVE ABNORMALITY ABNORMAL ECG Electronically signed by : ARELY PAEZ, 10/31/2023 15:59:09
--- NOTE | 2023-10-31 11:23 | XR_ITS ---
PROCEDURE INFORMATION: Exam: XR Chest Exam date and time: 10/31/2023 11:24 AM Age: 73 years old Clinical indication: Shortness of breath; Additional info: SOA TECHNIQUE: Imaging protocol: Radiologic exam of the chest. Views: 1 view. COMPARISON: CR XR CHEST PORTABLE 06/19/2023 3:41 PM FINDINGS: Lungs: Left base infiltrate medially adjacent to the heart border possibly lingula. Mild pulmonary equalization Pleural spaces: Small right pleural effusion. Heart/Mediastinum: Cardiomegaly. Bones/joints: Unremarkable. Other findings: Moderate rotation. IMPRESSION: CHF versus fluid overload. Superimposed lingular infiltrate.
[2023-10-31 11:35] LABS: Alanine Aminotransferase 23 U/L (12-78); Albumin Level 3.1 g/dl (3.5-5.0); Albumin/Globulin Ratio 0.9 (1.1-1.8); Alkaline Phosphatase 72 U/L (38-126); Anion Gap 8.9 mEq/L (5-15); Aspartate Amino Transferase 29 U/L (14-36); Bilirubin,Total 0.4 mg/dl (0.2-1.3); Blood Urea Nitrogen 66 mg/dl (7-17); Calcium 9.3 mg/dl (8.4-10.2); Carbon Dioxide 28 mmol/L (22.0-30.0); Chloride 107 mmol/L (98-107); Creatinine Clearance Estimated 14 mL/min (50-200); Estimated Glomerular Filt Rate 14 ml/min (>60); GFR (African American) 16 ML/MIN (>60); Globulin 3.3 g/dL (1.3-3.2); Glucose 178 mg/dl (74-100); Potassium 4.9 mmoL/L (3.5-5.1); Sodium 139 mmol/L (136-145); Total Protein,Serum 6.4 g/dl (6.3-8.2)
[2023-10-31 11:37] LABS: Basophils # 0.1 K/mm3 (0-0.2); Basophils % 0.6 % (0.1-2.0); Eosinophils # 0.2 K/mm3 (0.0-0.4); Eosinophils % 1.7 % (0.1-12.0); Hematocrit 28.2 % (37.0-47.0); Hemoglobin 8.6 g/dL (12.2-16.2); Lymphocytes # 1.4 K/mm3 (0.7-4.5); Mean Corpuscular HGB Conc 30.6 g/dL (31.8-35.4); Mean Corpuscular Hemoglobin 30.5 pg (27.0-31.2); Mean Corpuscular Volume 99.8 fl (81-99); Mean Platelet Volume 8.5 fl (7.4-10.4); Monocytes # 0.4 K/mm3 (0.1-1.0); Monocytes % 3.8 % (1.7-9.3); Neutrophils % 79.9 % (37.0-80.0); Platelet Count 382 K/mm3 (142-424); Red Blood Count 2.82 M/mm3 (4.20-5.40); Red Cell Distribution Width 14.3 % (11.5-17.5)
[2023-10-31 11:54] LABS: VBG Base Excess 1.2 mmol/L (-2.4-2.3); VBG HCO3 24.7 mmol/L (23-30); VBG Oxygen Saturation 91.4 % (50-70); VBG PCO2 33.9 mmol/L (35-51); VBG PH 7.48 mmol/L (7.31-7.41); VBG PO2 60.1 mmol/L (28-40); VBG Total CO2 25.8 mmol/L (23-27)
[2023-10-31 11:55] LABS: Troponin I 0.01 ng/ml (0.00-0.034)
[2023-10-31 12:33] LABS: Lactic Acid 0.9 mmol/L (0.7-2.1)
--- NOTE | 2023-10-31 12:45 | [facility].EDCP ---
Discharge Plan Disposition Patient Disposition: Admitted Chief Complaint: Shortness of Breath/Dyspnea Prescriptions Prescriptions: No Action metoclopramide HCl [Reglan] 5 mg tablet 5 mg PO TID Rx Instructions: administer 30 minutes before meals alendronate 35 mg tablet 35 mg PO WEEKLY Qty: 5 2RF calcium carbonate [Calcium 600] 600 mg calcium (1,500 mg) tablet 600 mg PO DAILY sennosides-docusate sodium [Senna-S] 8.6-50 mg tablet 1 tab-cap PO BID nystatin 100,000 unit/gram powder 1 applic topical BID Qty: 15 0RF melatonin 3 mg capsule 3 mg PO HS anastrozole 1 mg tablet 1 mg PO DAILY atorvastatin 20 mg tablet 20 mg PO HS trazodone 50 mg tablet 50 mg PO HS omeprazole 20 mg capsule,delayed release(DR/EC) 20 mg PO HS escitalopram oxalate 20 mg tablet 20 mg PO DAILY acetaminophen 650 mg Tablet Extended Release 650 mg PO Q12HP PRN (Reason: OSTEOARTHRITIS) carvedilol 6.25 mg Tablet 6.25 mg PO BID Rx Instructions: must administer with a meal/food oxybutynin chloride 15 mg Tablet Extended Release 24hr 15 mg PO DAILY amlodipine 10 mg Tablet 10 mg PO DAILY ergocalciferol (vitamin D2) 1,250 mcg (50,000 unit) Capsule 1,250 mcg PO MATUTE lactulose 20 gram/30 mL Solution 20 g PO Q8HP PRN (Reason: Constipation) Vitamin 27 mg iron- 800 mcg Tablet 1 ea PO 1700 Qty: 0 0RF bumetanide 1 mg tablet 1 mg PO DAILY Qty: 30 0RF Referrals Follow up/Referrals: Caleb Sweeney MD [Primary Care Provider] - See instructions Clinical Impressions Clinical Impression: Acute on chronic diastolic (congestive) heart failure, Acute kidney injury superimposed on CKD Print Language Print Language: Tanz[place] Discharge ED Provider: Sandeep Durant General Chief Complaint: Shortness of Breath/Dyspnea Stated Complaint: shortness of air Time Seen by Provider: 10/31/23 11:30 Mode of Arrival: EMS Source of Information: EMS Limitations: Altered Mental Status Description of Symptoms (Recalled from ER Triage Doc. by RN): low o2,shortness of air. lethargic History of Present Illness HPI narrative: Patient is a 73-year-old female with past medical history of type 2 diabetes, hypertension, dementia, heart failure, previous pleural effusions, CKD, intermittently conversational baseline who presents to the emergency department for evaluation of shortness of breath and cough. On nursing evaluation she had minimal verbal interaction however upon my interaction she is conversational. She states that she had shortness of breath that began today. No chest pain, no particular cough. She knows she is in the hospital but does not know what year it is. No other acute complaints at this time. Per chart review of her folder she has the a forementioned comorbidities as well as hyperlipidemia, polyneuropathy, chronic pain syndrome, GERD. Patient has a signed DNR order in her chart. She takes bumetanide 1 mg p.o. daily and is unsure whether or not she took it today. Per EMS report patient on arrival was low oxygen in the 70s that responded to nasal cannula. No other acute complaints at this time. Related Data Home Medications ?Medication ?Instructions ?Recorded ?Confirmed acetaminophen 650 mg 650 mg PO Q12HP PRN OSTEOARTHRITIS 07/04/22 10/27/23 tablet,extended release amlodipine 10 mg tablet 10 mg PO DAILY BLOOD PRESSURE 07/04/22 10/27/23 anastrozole 1 mg tablet 1 mg PO DAILY HX OF BENIGN TUMORS 07/04/22 10/27/23 atorvastatin 20 mg tablet 20 mg PO HS Cholesterol 07/04/22 10/27/23 carvedilol 6.25 mg tablet 6.25 mg PO BID BLOOD PRESSURE 07/04/22 10/27/23 ergocalciferol (vitamin D2) 1,250 1,250 mcg PO MATUTE Supplement 07/04/22 10/27/23 mcg (50,000 unit) capsule escitalopram oxalate 20 mg tablet 20 mg PO DAILY Depression 07/04/22 10/27/23 lactulose 20 gram/30 mL oral 20 g PO Q8HP PRN Constipation 07/04/22 10/27/23 solution omeprazole 20 mg capsule,delayed 20 mg PO HS Acid reflux 07/04/22 10/27/23 release oxybutynin chloride 15 mg 15 mg PO DAILY BLADDER 07/04/22 10/27/23 tablet,extended release 24 hr trazodone 50 mg tablet 50 mg PO HS Insomnia 07/04/22 10/27/23 metoclopramide HCl 5 mg tablet 5 mg PO TID 10/02/22 10/27/23 (Reglan) calcium carbonate (Calcium 600) 600 mg PO DAILY 03/06/23 10/27/23 melatonin 3 mg capsule 3 mg PO HS 03/06/23 10/27/23 sennosides 8.6 mg-docusate sodium 1 tab-cap PO BID 03/06/23 10/27/23 50 mg tablet (Senna-S) Previous Rx's ?Medication ?Instructions ?Recorded bumetanide 1 mg tablet 1 mg PO DAILY #30 tabs 07/07/22 vits no.130-ferrous fum 1 ea PO 1700 #0 tabs 07/07/22 27 mg iron-folic acid 800 mcg tablet ( Vitamin) alendronate 35 mg tablet 35 mg PO WEEKLY #5 tabs 03/06/23 nystatin 100,000 unit/gram topical 1 applic topical BID #15 grams 03/06/23 powder Allergies Allergy/AdvReac Type Severity Reaction Status Date / Time phenol [From Chloraseptic] Allergy Unknown Verified 10/27/23 13:35 benzocaine Allergy Verified 10/27/23 13:35 [From Chloraseptic Sore Throat] ciprofloxacin [From Cipro] Allergy Verified 10/27/23 13:35 diazepam [From Valium] Allergy Verified 10/27/23 13:35 ibuprofen [From Motrin] Allergy Verified 10/27/23 13:35 menthol Allergy Verified 10/27/23 13:35 morphine Allergy Verified 10/27/23 13:35 nitrofurantoin Allergy Verified 10/27/23 13:35 [From Macrobid] ondansetron [From Zofran] Allergy Verified 10/27/23 13:35 propoxyphene Allergy Verified 10/27/23 13:35 sulfamethoxazole Allergy Verified 10/27/23 13:35 [From Bactrim] trimethoprim [From Bactrim] Allergy Verified 10/27/23 13:35 [facility] Disclaimer: The information contained in this section may have been updated after the patient was seen, as this information can be updated by other users. Medical History Osteoarthritis Insomnia Breast cancer GERD (gastroesophageal reflux disease) Dementia Anxiety Major depressive disorder HTN (hypertension) HLD (hyperlipidemia) Diabetes mellitus type 2 in obese CVA (cerebral vascular accident) Family History Other No significant family history Social History Smoking Status: Never smoker second hand exposure: No alcohol intake: never substance use type: denies use current occupational status: disabled Travel in the last 8 weeks: None housing: halfway ROS Obtained: Yes Systems reviewed as appropriate & no additional complaints except as documented Physical Exam General General appearance: alert and in no apparent distress Head Head exam: atraumatic and normocephalic Eye Eye exam: Present PERRL and EOMI ENT ENT exam: Present mucous membranes moist Neck Neck exam: Present normal inspection Chest Chest inspection: Present normal inspection and symmetric chest wall rise Respiratory Respiratory exam: Present wheezes (Expiratory phase left greater than right); Absent respiratory distress Cardiovascular Cardiovascular exam: Present regular rate and normal rhythm Abdominal Exam Abdominal exam: Present soft; Absent tenderness Extremities Exam Extremities exam: Present normal inspection and other (Compression stockings in place, no significant pitting edema BLE) Neurological Exam Neurological exam: Present alert; Absent motor sensory deficit Psychiatric Psychiatric exam: Present normal affect Skin Skin exam: Present warm and dry HEART Score HEART Score HEART Score assessment performed?: Yes History (anamnesis): Slightly suspicious ECG: Non-specific disturbance Age: >65 years Risk factors: 3 or more risk factors Troponin: </= normal limit HEART Score: 5 Critical Care Critical Care Time Critical Care Time: Yes Attestation: On 10/31/23, the high probability of a clinically significant, sudden or life threatening deterioration of the following system(s) required my full and direct attention, intervention and personal management. The time I documented below is in addition to time spent performing reported procedures but includes the following listed in this critical care notation. Total Time Total Critical Care Time: 40 Medical Decision Making Johny Inquiry Pt receiving controlled substance: No Vital Signs Vital Signs: 10/31/23 10:36 10/31/23 11:00 10/31/23 11:30 Temperature 98.1 F Temperature Source Axillary Pulse Rate 70 77 Pulse Rate [Right] 99 H Respiratory Rate 18 Blood Pressure 145/61 H 115/65 Blood Pressure [Right Arm] 149/58 H Blood Pressure Mean 89 85 Blood Pressure Mean [Right Arm] 88 02 Sat by Pulse Oximetry 87 L 88 L 92 L Oxygen Delivery Method Nasal Cannula Room Air Room Air Oxygen Flow Rate (LPM) 2 10/31/23 12:01 10/31/23 12:31 10/31/23 13:00 Temperature Temperature Source Pulse Rate 69 81 81 Pulse Rate [Right] Respiratory Rate Blood Pressure 141/63 H 152/86 H 150/62 H Blood Pressure [Right Arm] Blood Pressure Mean Blood Pressure Mean [Right Arm] 02 Sat by Pulse Oximetry 94 L 93 L 92 L Oxygen Delivery Method Nasal Cannula Oxygen Flow Rate (LPM) 10/31/23 13:31 10/31/23 14:01 10/31/23 14:30 Temperature Temperature Source Pulse Rate 81 79 73 Pulse Rate [Right] Respiratory Rate Blood Pressure 154/85 H 149/60 H 161/76 H Blood Pressure [Right Arm] Blood Pressure Mean Blood Pressure Mean [Right Arm] 02 Sat by Pulse Oximetry 92 L 91 L 93 L Oxygen Delivery Method Nasal Cannula Nasal Cannula Oxygen Flow Rate (LPM) Lab Data Labs: Lab Results 10/31/23 10:42: D-Dimer 1.89 H, NT-Pro-B Natriuret Pep 97613 H 10/31/23 10:44: WBC 10.0, RBC 2.82 L, Hgb 8.6 L, Hct 28.2 L, MCV 99.8 H, MCH 30.5, MCHC 30.6 L, RDW 14.3, Plt Count 382, MPV 8.5, Neut % (Auto) 79.9, Lymph % (Auto) 14.0, [place] % (Auto) 3.8, Eos % (Auto) 1.7, Baso % (Auto) 0.6, Neut # (Auto) 8.0 H, Lymph # (Auto) 1.4, [place] # (Auto) 0.4, Eos # (Auto) 0.2, Baso # (Auto) 0.1, Sodium 139, Potassium 4.9, Chloride 107, Carbon Dioxide 28, Anion Gap 8.9, BUN 66 H, Creatinine 3.30 H, Estimated Creat Clear 14, Estimated GFR 14 L*, Est GFR ( Amer) 16 L*, Glucose 178 H, Lactate 0.9, Calcium 9.3, Total Bilirubin 0.4, AST 29, ALT 23, Alkaline Phosphatase 72, Troponin I 0.01, Total Protein 6.4, Albumin 3.1 L, Globulin 3.3 H, Albumin/Globulin Ratio 0.9 L 10/31/23 11:45: VBG pH 7.48 H, VBG pCO2 33.9 L, VBG pO2 60.1 H, VBG HCO3 24.7, VBG Total CO2 25.8, VBG O2 Saturation 91.4 H, VBG Base Excess 1.2, VBG Lactic Acid 1.0 10/31/23 : Urine Color Yellow, Urine Appearance Clear, Urine pH 7.0, Ur Specific Ralph 1.020, Urine Protein Negative, Urine Glucose (UA) Negative, Urine Ketones Negative, Urine Blood Negative, Urine Nitrate Negative, Urine Bilirubin Negative, Urine Urobilinogen 0.2, Ur Leukocyte Esterase Negative, Urine RBC None, Urine WBC Occasional, Urine Bacteria Trace 10/31/23 10:44 10/31/23 10:44 Response Orders (Tests/Meds): ED MEDICATIONS Discontinued Medications Generic Name Dose Route Start Last Admin Trade Name Freq PRN Reason Stop Dose Admin Bumetanide 2 mg 10/31/23 14:21 10/31/23 14:47 Bumetanide 1mg/4ml Vial IV 10/31/23 14:22 2 mg ONCE ONE Administration ORDERS Category Date Time Status CXR --portable [XR chest portable] Stat Exams 10/31/23 11:23 Completed POCUS Point of Care (ER Only) Stat Exams 10/31/23 12:45 Completed BNP [NT Pro Brain Natriuretic Pep.] Stat Lab 10/31/23 10:42 Completed Basic Metabolic Panel Routine Lab 10/31/23 20:00 Ordered Complete Blood Count Auto Diff AMLAB Lab 11/01/23 06:00 Ordered Complete Blood Count Auto Diff Stat Lab 10/31/23 10:44 Completed Comprehensive Metabolic Panel AMLAB Lab 11/01/23 06:00 Ordered Comprehensive Metabolic Panel Stat Lab 10/31/23 10:44 Completed D-Dimer Stat Lab 10/31/23 10:42 Completed Lactic Acid Stat Lab 10/31/23 10:44 Completed Magnesium AMLAB Lab 11/01/23 06:00 Ordered Troponin I Q3H Lab 10/31/23 14:36 Received Troponin I Q3H Lab 10/31/23 17:30 Ordered Troponin I Stat Lab 10/31/23 10:44 Completed UA [Urinalysis and Microscopic] Stat Lab 10/31/23 Completed Venous Blood Gas Stat RT 10/31/23 11:45 Completed ECG Data Tracing #1: ECG Narrative: Independently interpreted by me rate is 76, rhythm is regular, axis is normal, no ST elevation in anatomical contiguous leads, QTc 436 MDM Narrative Medical Decision Narrative: In summary patient is a 73-year-old female past medical history described above presents emergency department for evaluation of shortness of breath. Patient is hemodynamically stable and nontoxic-appearing upon arrival, afebrile. Patient has slight wheezing left greater than right. She does not have a history of cough and does not have any fever. She has no diagnosed history of COPD. I suspect CHF with cardiac wheeze. Differential also includes pneumonia versus COPD. Workup we conducted with broad hematologic labs, chest x-ray, EKG, troponins, BNP, D-dimer, VBG. Initial crystalloid resuscitation will be deferred given that I suspect possible CHF. [id number] ultrasound will be conducted. DuoNeb will be administered to see if it affects the wheezing. Initial work reviewed by me, stable anemia, no leukocytosis, D-dimer elevated 1.9, respiratory alkalosis, MADAY on CKD without critical electrolyte derangement, elevated BNP compared to baseline, urinalysis turbid by me and not consistent with infection. Chest x-ray consistent with fluid overload with superimposed lingular infiltrate. On my informal interpretation there appears to be fluid in the minor fissure. Given the lack of cough and other infectious symptoms and isolated shortness of breath without leukocytosis shared decision-making discussion was had with hospital medicine, we will forego CT imaging with contrast at this time given her tenuous renal status and the fact that her symptoms are easily explained by her heart failure. To Bumex IV will be administered. Empiric antibiotics were deferred in the emergency department given that I think this patient has a heart failure exacerbation. Patient admitted in stable condition. Second troponin pending at time of admission.
[2023-10-31 12:59] LABS: Appearance,Urine CLEAR (Clear); Bilirubin,Urine Negative (Negative); Blood, Urine Negative (Negative); Color,Urine YELLOW (Yellow); Glucose,Urine (UA) Negative (Negative); Ketones,Urine Negative (Negative); Leukocyte Esterase,Urine Negative (Negative); Microscopic, Urine URINE MICROSCOPIC (MICROSCOPIC); Nitrate,Urine Negative (Negative); Protein,Urine Negative (Negative); Urobilinogen,Urine 0.2 EU/dl (0.2)
[2023-10-31 13:00] LABS: D-Dimer 1.89 ug/mL (0.0-0.5)
--- NOTE | 2023-10-31 13:04 | PC.NURSE ---
call made to [facility] for more information on pt. nurse reports that KMA gave pt morning medications. pipelines manager walked by room and noticed that pt was having difficulty breathing. pipelines manager went to get nurse, nurse went in to check on pt room air sat was 57%, pt placed on 4L NC and was able to come up to 90%. EMS was called.
[2023-10-31 13:05] LABS: NT Pro Brain Natriuretic Pep. 10700 pg/mL (0-450)
[2023-10-31 13:17] LABS: WBC,Urine Occasional #/hpf (0-3)
[2023-10-31 13:18] LABS: Bacteria,Urine Trace /lpf
--- NOTE | 2023-10-31 14:05 | P.HP_ITS ---
History of Present Illness *Admission Date: 10/31/23 *Reason for visit:: dyspnea *History of present illness: Ms. Moore is a 73-year-old female who is a long-term resident at [facility] with history of dementia, heart failure with preserved ejection fraction, CKD 4, chronic anemia, functional quadriplegia. She presented to the ER with worsening shortness of breath and oxygen requirement from baseline. Pleasant on exam. On initial workup, she is conversational and reports that she is felt short of breath for the past day or 2. Denies any cough, chest pain, nausea or vomiting. Workup showed worsening kidney function and significant pulmonary edema with prominent fissures on chest imaging. Given her increased oxygen from baseline, abnormal labs, and abnormal chest imaging concerning for volume overload, medicine consulted for admission and further management. On evaluation, patient is on 3 L nasal cannula with sats in the low 90s. Has a tremor at baseline. Making good urine after receiving a dose of Bumex in the ER. Discussed obtaining CTA of chest for PE with the ER physician, recommend at this time we hold due to concern that contrast load will significantly hurt kidneys as she is high risk for contrast-induced nephropathy and is a poor madi date for dialysis. Monitor for improvement with breathing with diuresis as clinically her symptoms fit with CHF exacerbation and volume overload. [facility] Disclaimer: The information contained in this section may have been updated after the patient was seen, as this information can be updated by other users. Medical History Osteoarthritis Insomnia Breast cancer GERD (gastroesophageal reflux disease) Dementia Anxiety Major depressive disorder HTN (hypertension) HLD (hyperlipidemia) Diabetes mellitus type 2 in obese CVA (cerebral vascular accident) Family History Other No significant family history Social History Smoking Status: Never smoker second hand exposure: No alcohol intake: never substance use type: denies use current occupational status: disabled Travel in the last 8 weeks: None housing: [facility] Review of Systems Review of Systems Review of systems (narrative): 14 point review of systems performed, pertinent positives and negatives as per HPI Meds Home Medications and Allergies Home Medications ?Medication ?Instructions ?Recorded ?Confirmed ?Type acetaminophen 650 mg 650 mg PO Q12HP PRN OSTEOARTHRITIS 07/04/22 10/27/23 History tablet,extended release amlodipine 10 mg tablet 10 mg PO DAILY BLOOD PRESSURE 07/04/22 10/27/23 History anastrozole 1 mg tablet 1 mg PO DAILY HX OF BENIGN TUMORS 07/04/22 10/27/23 History atorvastatin 20 mg tablet 20 mg PO HS Cholesterol 07/04/22 10/27/23 History carvedilol 6.25 mg tablet 6.25 mg PO BID BLOOD PRESSURE 07/04/22 10/27/23 History ergocalciferol (vitamin D2) 1,250 1,250 mcg PO MATUTE Supplement 07/04/22 10/27/23 History mcg (50,000 unit) capsule escitalopram oxalate 20 mg tablet 20 mg PO DAILY Depression 07/04/22 10/27/23 History lactulose 20 gram/30 mL oral 20 g PO Q8HP PRN Constipation 07/04/22 10/27/23 History solution omeprazole 20 mg capsule,delayed 20 mg PO HS Acid reflux 07/04/22 10/27/23 History release oxybutynin chloride 15 mg 15 mg PO DAILY BLADDER 07/04/22 10/27/23 History tablet,extended release 24 hr trazodone 50 mg tablet 50 mg PO HS Insomnia 07/04/22 10/27/23 History bumetanide 1 mg tablet 1 mg PO DAILY #30 tabs 07/07/22 10/27/23 Rx vits no.130-ferrous fum 1 ea PO 1700 #0 tabs 07/07/22 10/27/23 Rx 27 mg iron-folic acid 800 mcg tablet ( Vitamin) metoclopramide HCl 5 mg tablet 5 mg PO TID 10/02/22 10/27/23 History (Reglan) alendronate 35 mg tablet 35 mg PO WEEKLY #5 tabs 03/06/23 10/27/23 Rx calcium carbonate (Calcium 600) 600 mg PO DAILY 03/06/23 10/27/23 History melatonin 3 mg capsule 3 mg PO HS 03/06/23 10/27/23 History nystatin 100,000 unit/gram topical 1 applic topical BID #15 grams 03/06/23 10/27/23 Rx powder sennosides 8.6 mg-docusate sodium 1 tab-cap PO BID 03/06/23 10/27/23 History 50 mg tablet (Senna-S) New Prescriptions to Start Prescriptions: Allergies Allergy/AdvReac Type Severity Reaction Status Date / Time phenol [From Chloraseptic] Allergy Unknown Verified 10/27/23 13:35 benzocaine Allergy Verified 10/27/23 13:35 [From Chloraseptic Sore Throat] ciprofloxacin [From Cipro] Allergy Verified 10/27/23 13:35 diazepam [From Valium] Allergy Verified 10/27/23 13:35 ibuprofen [From Motrin] Allergy Verified 10/27/23 13:35 menthol Allergy Verified 10/27/23 13:35 morphine Allergy Verified 10/27/23 13:35 nitrofurantoin Allergy Verified 10/27/23 13:35 [From Macrobid] ondansetron [From Zofran] Allergy Verified 10/27/23 13:35 propoxyphene Allergy Verified 10/27/23 13:35 sulfamethoxazole Allergy Verified 10/27/23 13:35 [From Bactrim] trimethoprim [From Bactrim] Allergy Verified 10/27/23 13:35 Exam Data for Last 24 hours Vital signs and Labs for Last 24 Hours: Temp Pulse Resp BP Pulse Ox O2 Del Method O2 Flow Rate 98.1 F 81 18 154/85 H 92 L Nasal Cannula 2 10/31/23 10:36 10/31/23 13:31 10/31/23 10:36 10/31/23 13:31 10/31/23 13:31 10/31/23 13:31 10/31/23 10:36 Laboratory Results - last 24 hr 10/31/23 10:42: D-Dimer 1.89 H, NT-Pro-B Natriuret Pep 53824 H 10/31/23 10:44: WBC 10.0, RBC 2.82 L, Hgb 8.6 L, Hct 28.2 L, MCV 99.8 H, MCH 30.5, MCHC 30.6 L, RDW 14.3, Plt Count 382, MPV 8.5, Neut % (Auto) 79.9, Lymph % (Auto) 14.0, [place] % (Auto) 3.8, Eos % (Auto) 1.7, Baso % (Auto) 0.6, Neut # (Auto) 8.0 H, Lymph # (Auto) 1.4, [place] # (Auto) 0.4, Eos # (Auto) 0.2, Baso # (Auto) 0.1, Sodium 139, Potassium 4.9, Chloride 107, Carbon Dioxide 28, Anion Gap 8.9, BUN 66 H, Creatinine 3.30 H, Estimated Creat Clear 14, Estimated GFR 14 L*, Est GFR ( Amer) 16 L*, Glucose 178 H, Lactate 0.9, Calcium 9.3, Total Bilirubin 0.4, AST 29, ALT 23, Alkaline Phosphatase 72, Troponin I 0.01, Total Protein 6.4, Albumin 3.1 L, Globulin 3.3 H, Albumin/Globulin Ratio 0.9 L 10/31/23 11:45: VBG pH 7.48 H, VBG pCO2 33.9 L, VBG pO2 60.1 H, VBG HCO3 24.7, VBG Total CO2 25.8, VBG O2 Saturation 91.4 H, VBG Base Excess 1.2, VBG Lactic Acid 1.0 10/31/23 : Urine Color Yellow, Urine Appearance Clear, Urine pH 7.0, Ur Specific [place] 1.020, Urine Protein Negative, Urine Glucose (UA) Negative, Urine Ketones Negative, Urine Blood Negative, Urine Nitrate Negative, Urine Bilirubin Negative, Urine Urobilinogen 0.2, Ur Leukocyte Esterase Negative, Urine RBC None, Urine WBC Occasional, Urine Bacteria Trace I & O for Last 24 hours: Intake & Output 10/28/23 10/29/23 10/30/23 10/31/23 23:59 23:59 23:59 23:59 Weight 58.967 kg Constitutional Constitutional: no acute distress, obese, chronically ill appearing and cooperative *Routine HEENT Exam Head: Present normocephalic Eye: Present EOMI and PERRL ENT: Present mucous membranes moist *Routine Neck Exam Neck: Present supple; Absent lymphadenopathy *Routine Respiratory Exam Respiratory: Present crackles, diminished air movement (in bases) and normal respiratory effort; Absent wheezes *Routine Cardiovascular Exam Cardiovascular: Present RRR *Routine Abdominal Exam Abdominal: Present soft and normoactive bowel sounds; Absent tenderness *Routine Rectal Exam Rectal:: deferred *Routine Genitalia Exam Genitalia:: deferred *Routine Extremities Exam Extremities: Present edema (1+ to thighs); Absent cyanosis or clubbing *Routine Skin Exam Skin: Present warm; Absent rash *Routine Neurological Exam Neurological: Present alert and moving all extremities; Absent altered mental status Comments: Pleasantly demented. Oriented to person Assessment and Plan *Assessment and plan (1) Acute on chronic diastolic (congestive) heart failure: Status: Acute Category: Medical Code(s): I50.33 - Acute on chronic diastolic (congestive) heart failure (2) Volume overload: Status: Resolved Category: Medical Code(s): E87.70 - Fluid overload, unspecified (3) Pulmonary edema: Status: Resolved Category: Medical Code(s): J81.1 - Chronic pulmonary edema (4) Functional quadriplegia: Status: Acute Category: Medical Code(s): R53.2 - Functional quadriplegia (5) Bilateral pleural effusion: Status: Acute Category: Medical Code(s): J90 - Pleural effusion, not elsewhere classified (6) Hypoxemia: Status: Acute Category: Medical Code(s): R09.02 - Hypoxemia (7) MADAY (acute kidney injury): Status: Acute Category: Medical Code(s): N17.9 - Acute kidney failure, unspecified (8) Acute UTI: Status: Acute Category: Medical Code(s): N39.0 - Urinary tract infection, site not specified (9) Dementia: Status: Acute Category: Medical Code(s): F03.90 - Unspecified dementia, unspecified severity, without behavioral disturbance, psychotic disturbance, mood disturbance, and anxiety (10) HTN (hypertension): Status: Acute Category: Medical Code(s): I10 - Essential (primary) hypertension (11) Anemia: Status: Acute Category: Medical Code(s): D64.9 - Anemia, unspecified (12) Stage 4 chronic kidney disease: Status: Chronic Category: Medical Code(s): N18.4 - Chronic kidney disease, stage 4 (severe) Plan 71-year-old female with dementia and hypertension, presents with acute worsening of heart failure. Necessitating 3 L oxygen. Discussed case with ER, request admission for diuresis and further management of MADAY and heart failure. I agreed to admit. Administered Bumex in the ER. Responding with increased urine output. Necessitating inpatient management due to complexity of comorbidities, MADAY on CKD 4, and heart failure exacerbation. Problems addressed as follows: Acute on chronic diastolic heart failure Hypoxia Pleural effusions/pulmonary edema Volume overload Hypertension -Significant volume overload on imaging, small effusion on right side with bilateral lower lung field opacification and prominent fissures. Pleural effusions and pulmonary edema -Echo obtained 1 year ago showing elevated RVSP of 64, EF 60 to 70%, grade 2 diastolic dysfunction -Continue diuresis with Bumex 2 mg IV twice daily. continue with goal -2 L daily -Addressing hypertension with diuresis -Continue amlodipine 10 mg daily, carvedilol 6.25 mg twice daily. -Continue supplemental oxygen with goal saturation greater 90%, currently on 3 L -BNP elevated at 10,000, troponin detectable at 0.04, no chest pain. In the setting of worsening MADAY and volume overload, suspect troponin leak due to heart strain. Will continue to monitor. Functional quadriplegia -Secondary to her dementia; requires near total care. -Patient is bedbound, Alexi score of 13. Incontinent -Requires assistance with all ADLs. MADAY on ckd CKD 4 -Creatinine baseline of 2.2. Increased to 3.3 today, BUN doubled from 30-66 in the past 4 months. -Repeat BMP ordered for this evening. - Electrolytes normal with potassium 4.9, sodium 139. Anemia -Monitor daily, appears chronic in nature. -Chronic anemia, hemoglobin 8.6. Transfusion threshold hemoglobin less than 7 Hyperglycemia -Glucose 178 on admission. On insulin at her [facility], A1c a year ago 6.3. Repeat pending -Fingersticks ACHS, sliding scale and Continue home meds for mood and sleep including melatonin 5 mg nightly, trazodone 50 mg nightly, and escitalopram 20 mg daily. addressing code status with POA Cardiac diet Heparin 5000 units SQ 3 times daily
[2023-10-31] MEDS: BUMETANIDE 1MG/4ML VIAL 2 MG IV (14:47)
[2023-10-31 15:05] LABS: Troponin I 0.04 ng/ml (0.00-0.034)
--- NOTE | 2023-10-31 15:20 | PC.NURSE ---
call made to senior data warehouse architect for bed placement
--- NOTE | 2023-10-31 17:41 | PC.NURSE ---
report called to marquise
--- NOTE | 2023-10-31 17:56 | PC.NURSE ---
arrived by stretcher from ED
--- NOTE | 2023-10-31 18:45 | PC.NURSE ---
CALLED PT'S FAMILY TO VERIFY CODE STATUS. [id number] STATED SHE WOULD TALK TO PT'S SON AND CALL BACK
--- NOTE | 2023-10-31 18:55 | PC.NURSE ---
ATTEMPTED TO GET MED REC COMPLETED. [facility] DID NOT SEND A MED LIST. WILL ATTEMPT TO GET ONE SENT FROM [facility].
[2023-10-31 18:59] LABS: Troponin I 0.04 ng/ml (0.00-0.034)
--- NOTE | 2023-10-31 19:02 | PC.NURSE ---
wasn't given tray
[2023-10-31 20:08] LABS: Chloride 107 mmol/L (98-107); Sodium 139 mmol/L (136-145)
[2023-10-31 20:09] LABS: Potassium 4.3 mmoL/L (3.5-5.1)
[2023-10-31 20:11] LABS: Blood Urea Nitrogen 63 mg/dl (7-17); Creatinine Clearance Estimated 14 mL/min (50-200); Estimated Glomerular Filt Rate 14 ml/min (>60); GFR (African American) 17 ML/MIN (>60)
[2023-10-31 20:12] LABS: Anion Gap 8.3 mEq/L (5-15); Calcium 9.4 mg/dl (8.4-10.2); Carbon Dioxide 28 mmol/L (22.0-30.0); Glucose 150 mg/dl (74-100)
[2023-10-31 20:26] LABS: POC Glucose,Bedside 176 (70-110)
[2023-10-31] MEDS: ATORVASTATIN 20MG TABLET 20 MG PO (20:36)
[2023-10-31] MEDS: humaLOG 100 UNITS/ML 10ML VIAL (SSI) SQ (20:36)
[2023-10-31] MEDS: CARVEDILOL 6.25MG TABLET 6.25 MG PO (20:36)
[2023-10-31] MEDS: TRAZODONE 50MG TABLET 50 MG PO (20:37)
[2023-11-01] VITALS (7 sets, daily range): BP systolic 126–155; BP diastolic 59–70; PULSE 68–76; RESP 16–18; TEMP 36.8–37.2; O2SAT 91–93; BMI 27.1
--- NOTE | 2023-11-01 05:43 | PC.NURSE ---
Pt has remained alert to person and place. She has tolerated 2L O2 throughout the shift. She is currently asleep and has done so the majority of the shift. Still awaiting a call from family to confirm DNR status. No complaints at this time call light within reach.
[2023-11-01] MEDS: ACETAMINOPHEN 325MG TAB 650 MG PO (06:07)
[2023-11-01 06:10] LABS: POC Glucose,Bedside 113 (70-110)
[2023-11-01 07:54] LABS: Basophils # 0.1 K/mm3 (0-0.2); Basophils % 0.8 % (0.1-2.0); Eosinophils # 0.2 K/mm3 (0.0-0.4); Eosinophils % 2.2 % (0.1-12.0); Hematocrit 24.8 % (37.0-47.0); Hemoglobin 7.9 g/dL (12.2-16.2); Lymphocytes # 2.2 K/mm3 (0.7-4.5); Lymphocytes % 25.5 % (10-50); Mean Corpuscular HGB Conc 31.7 g/dL (31.8-35.4); Mean Corpuscular Hemoglobin 31.3 pg (27.0-31.2); Mean Platelet Volume 8.4 fl (7.4-10.4); Monocytes # 0.5 K/mm3 (0.1-1.0); Monocytes % 6.1 % (1.7-9.3); Neutrophils # 5.5 K/mm3 (1.8-7.8); Neutrophils % 65.3 % (37.0-80.0); Platelet Count 371 K/mm3 (142-424); Red Blood Count 2.51 M/mm3 (4.20-5.40); Red Cell Distribution Width 14.3 % (11.5-17.5); White Blood Count 8.4 K/mm3 (4.8-10.8)
[2023-11-01 07:57] LABS: Albumin Level 2.9 g/dl (3.5-5.0); Chloride 108 mmol/L (98-107); Potassium 4.2 mmoL/L (3.5-5.1); Sodium 137 mmol/L (136-145)
[2023-11-01 08:00] LABS: Alanine Aminotransferase 17 U/L (12-78); Alkaline Phosphatase 65 U/L (38-126); Anion Gap 6.2 mEq/L (5-15); Aspartate Amino Transferase 22 U/L (14-36); Bilirubin,Total 0.6 mg/dl (0.2-1.3); Blood Urea Nitrogen 63 mg/dl (7-17); Calcium 9.1 mg/dl (8.4-10.2); Carbon Dioxide 27 mmol/L (22.0-30.0); Creatinine Clearance Estimated 15 mL/min (50-200); Estimated Glomerular Filt Rate 14 ml/min (>60); GFR (African American) 17 ML/MIN (>60); Globulin 2.9 g/dL (1.3-3.2); Glucose 97 mg/dl (74-100); Total Protein,Serum 5.8 g/dl (6.3-8.2)
[2023-11-01 09:21] LABS: Hemoglobin A1C 6.3 % (4.0-6.0)
[2023-11-01] MEDS: CARVEDILOL 6.25MG TABLET 6.25 MG PO ×2 (10:06→20:40)
[2023-11-01] MEDS: AMLODIPINE 10MG TABLET 10 MG PO (10:06)
[2023-11-01] MEDS: CITALOPRAM 40MG TABLET 40 MG PO (10:06)
[2023-11-01] MEDS: BUMETANIDE 1MG/4ML VIAL 2 MG IV ×2 (10:06→16:30)
[2023-11-01 11:01] LABS: POC Glucose,Bedside 118 (70-110)
--- NOTE | 2023-11-01 12:13 | EXP.ACUTE.PN ---
Subjective *Date: 11/01/23 *Time: 19:26 Interval history: Diuresing well. Negative at least 1 L in the past 24 hours. Stable on 2 L. Son at bedside on rounds, discussed goals of care. Patient is DNR. Patient feeling short of breath today, but no worse than yesterday. No nausea or vomiting. Medical Exam Vital signs and Labs for Last 24 Hours: Vital Signs Temp Pulse Pulse Resp BP BP Pulse Ox 11/01/23 11:52 98.5 F 73 16 137/64 93 L 11/01/23 11:00 11/01/23 09:00 11/01/23 08:00 68 11/01/23 08:00 98.3 F 68 18 126/70 93 L 11/01/23 07:55 11/01/23 06:47 11/01/23 05:36 98.8 F 74 16 155/65 H 93 L 11/01/23 05:00 11/01/23 04:00 76 11/01/23 03:00 11/01/23 01:00 11/01/23 00:00 98.9 F 75 18 150/66 H 92 L 11/01/23 00:00 74 10/31/23 23:00 10/31/23 21:00 10/31/23 20:00 10/31/23 20:00 88 10/31/23 19:08 99.2 F 84 20 171/60 H 93 L 10/31/23 19:04 10/31/23 19:00 10/31/23 17:59 98.1 F 84 18 164/69 H 10/31/23 17:50 83 171/60 H 92 L 10/31/23 17:31 85 164/69 H 94 L 10/31/23 17:00 83 161/65 H 92 L 10/31/23 16:31 86 156/56 H 91 L 10/31/23 16:01 88 171/76 H 90 L 10/31/23 15:30 82 181/74 H 93 L 10/31/23 15:00 71 166/71 H 95 10/31/23 14:30 73 161/76 H 93 L 10/31/23 14:01 79 149/60 H 91 L 10/31/23 13:31 81 154/85 H 92 L 10/31/23 13:00 81 150/62 H 92 L 10/31/23 12:31 81 152/86 H 93 L O2 Del Method O2 Flow Rate 11/01/23 11:52 Nasal Cannula 2 11/01/23 11:00 Nasal Cannula 2 11/01/23 09:00 Nasal Cannula 2 11/01/23 08:00 11/01/23 08:00 Nasal Cannula 2 11/01/23 07:55 Nasal Cannula 2 11/01/23 06:47 Nasal Cannula 2 11/01/23 05:36 Nasal Cannula 2 11/01/23 05:00 Nasal Cannula 2 11/01/23 04:00 11/01/23 03:00 Nasal Cannula 2 11/01/23 01:00 Nasal Cannula 2 11/01/23 00:00 Nasal Cannula 2 11/01/23 00:00 10/31/23 23:00 Nasal Cannula 2 10/31/23 21:00 Nasal Cannula 2 10/31/23 20:00 Nasal Cannula 2 10/31/23 20:00 10/31/23 19:08 Nasal Cannula 2 10/31/23 19:04 Room Air 10/31/23 19:00 Room Air 10/31/23 17:59 Nasal Cannula 2 10/31/23 17:50 10/31/23 17:31 10/31/23 17:00 10/31/23 16:31 10/31/23 16:01 10/31/23 15:30 10/31/23 15:00 10/31/23 14:30 Nasal Cannula 10/31/23 14:01 10/31/23 13:31 Nasal Cannula 10/31/23 13:00 Nasal Cannula 10/31/23 12:31 Intake and Output 10/31/23 11/01/23 11/01/23 23:59 07:59 15:59 Intake Total 200 / 200 Output Total 400 / 400 Balance -200 / -200 Intake: Intake, Oral Amount 200 / 200 Output: Output, Urine Amount 400 / 400 Other: Weight 60.192 kg 62.641 kg Patient Weight 11/01/23 23:59 Weight 62.641 kg Laboratory Results - last 24 hr 10/31/23 10:42: D-Dimer 1.89 H, NT-Pro-B Natriuret Pep 86833 H 10/31/23 10:44: Lactate 0.9 10/31/23 14:36: Troponin I 0.04 H 10/31/23 18:30: Troponin I 0.04 H 10/31/23 19:55: Sodium 139, Potassium 4.3, Chloride 107, Carbon Dioxide 28, Anion Gap 8.3, BUN 63 H, Creatinine 3.20 H, Estimated Creat Clear 14, Estimated GFR 14 L*, Est GFR ( Amer) 17 L*, Glucose 150 H, Calcium 9.4 10/31/23 20:08: POC Glucose 176 H 10/31/23 : Urine Color Yellow, Urine Appearance Clear, Urine pH 7.0, Ur Specific [place] 1.020, Urine Protein Negative, Urine Glucose (UA) Negative, Urine Ketones Negative, Urine Blood Negative, Urine Nitrate Negative, Urine Bilirubin Negative, Urine Urobilinogen 0.2, Ur Leukocyte Esterase Negative, Urine RBC None, Urine WBC Occasional, Urine Bacteria Trace 11/01/23 05:58: POC Glucose 113 H 11/01/23 06:34: WBC 8.4, RBC 2.51 L, Hgb 7.9 L, Hct 24.8 L, MCV 99.0, MCH 31.3 H, MCHC 31.7 L, RDW 14.3, Plt Count 371, MPV 8.4, Neut % (Auto) 65.3, Lymph % (Auto) 25.5, [place] % (Auto) 6.1, Eos % (Auto) 2.2, Baso % (Auto) 0.8, Neut # (Auto) 5.5, Lymph # (Auto) 2.2, [place] # (Auto) 0.5, Eos # (Auto) 0.2, Baso # (Auto) 0.1, Sodium 137, Potassium 4.2, Chloride 108 H, Carbon Dioxide 27, Anion Gap 6.2, BUN 63 H, Creatinine 3.20 H, Estimated Creat Clear 15, Estimated GFR 14 L*, Est GFR ( Amer) 17 L*, Glucose 97 D, Hemoglobin A1c 6.3 H, Calcium 9.1, Magnesium 2.0, Total Bilirubin 0.6, AST 22, ALT 17 D, Alkaline Phosphatase 65, Total Protein 5.8 L, Albumin 2.9 L, Globulin 2.9, Albumin/Globulin Ratio 1.0 L 11/01/23 10:54: POC Glucose 118 H I & O for Labs for Last 24 Hours: Intake & Output 10/29/23 10/30/23 10/31/23 11/01/23 23:59 23:59 23:59 23:59 Intake Total 200 / 200 Output Total 800 / 800 400 / 400 Balance -800 / -600 -200 / -200 Weight 60.192 kg 62.641 kg Constitutional: Present no acute distress, average body habitus and chronically ill appearing Head: Present atraumatic and normocephalic Respiratory: Present crackles (Interval improvement in bilateral crackles, faint, end inspiratory.) and normal respiratory effort; Absent rhonchi or wheezes Cardiac: Present Reg Rate and Rhythm GI: Present normal bowel sounds; Absent tenderness Extremities: Present normal inspection, full ROM and edema (Trace); Absent tenderness Skin: Present intact; Absent erythema Neuro: Present Grossly Intact, alert, awake and moves all extremities Comment:: Tremor in upper extremities Assessment and Plan *Assessment and plan (1) Acute on chronic diastolic (congestive) heart failure: Status: Acute Category: Medical Code(s): I50.33 - Acute on chronic diastolic (congestive) heart failure (2) Volume overload: Status: Resolved Category: Medical Code(s): E87.70 - Fluid overload, unspecified (3) Pulmonary edema: Status: Resolved Category: Medical Code(s): J81.1 - Chronic pulmonary edema (4) Functional quadriplegia: Status: Acute Category: Medical Code(s): R53.2 - Functional quadriplegia (5) Bilateral pleural effusion: Status: Acute Category: Medical Code(s): J90 - Pleural effusion, not elsewhere classified (6) Hypoxemia: Status: Acute Category: Medical Code(s): R09.02 - Hypoxemia (7) MADAY (acute kidney injury): Status: Acute Category: Medical Code(s): N17.9 - Acute kidney failure, unspecified (8) Acute UTI: Status: Acute Category: Medical Code(s): N39.0 - Urinary tract infection, site not specified (9) Dementia: Status: Acute Category: Medical Code(s): F03.90 - Unspecified dementia, unspecified severity, without behavioral disturbance, psychotic disturbance, mood disturbance, and anxiety (10) HTN (hypertension): Status: Acute Category: Medical Code(s): I10 - Essential (primary) hypertension (11) Anemia: Status: Acute Category: Medical Code(s): D64.9 - Anemia, unspecified (12) Stage 4 chronic kidney disease: Status: Chronic Category: Medical Code(s): N18.4 - Chronic kidney disease, stage 4 (severe) Plan 71-year-old female with dementia and hypertension, presents with acute worsening of heart failure. Necessitating 3 L oxygen. Discussed case with ER, request admission for diuresis and further management of MADAY and heart failure. I agreed to admit. Tolerating diuresis, down at least 1 L since admission. Kidney function staying stable. Continues to require inpatient management. Wean oxygen as tolerated. Problems addressed as follows: Acute on chronic diastolic heart failure Hypoxia Pleural effusions/pulmonary edema Volume overload Hypertension -Significant volume overload on imaging, small effusion on right side with bilateral lower lung field opacification and prominent fissures. Pleural effusions and pulmonary edema -Echo obtained 1 year ago showing elevated RVSP of 64, EF 60 to 70%, grade 2 diastolic dysfunction; Repeat limited echo pending for the morning d -Continue diuresis with Bumex 2 mg IV twice daily. continue with goal -2 L daily -Addressing hypertension with diuresis -Continue amlodipine 10 mg daily, carvedilol 6.25 mg twice daily. -Continue supplemental oxygen with goal saturation greater 90%, currently on 2 L; baseline on room air -BNP elevated at 10,000, troponin detectable at 0.04, no chest pain. In the setting of worsening MADAY and volume overload, suspect troponin leak due to heart strain. Will continue to monitor. Functional quadriplegia -Secondary to her dementia; requires near total care. -Patient is bedbound, Alexi score of 13. Incontinent -Requires assistance with all ADLs. MADAY on ckd CKD 4 -Creatinine baseline of 2.2. Creatinine 3.2, BUN 63. Potassium 4.2 with magnesium 2.0. Repeat CMP, CBC, magnesium ordered for the morning. Anemia -Monitor daily, appears chronic in nature. -Chronic anemia, hemoglobin 7.9, Transfusion threshold hemoglobin less than 7 Hyperglycemia -Glucose 97 on admission, A1c 6.3. Prediabetic versus well-controlled diabetes -Fingersticks ACHS, sliding scale and Continue home meds for mood and sleep including melatonin 5 mg nightly, trazodone 50 mg nightly, and escitalopram 20 mg daily. DNR Cardiac Heparin 5000 units SQ 3 times daily
[2023-11-01] MEDS: humaLOG 100 UNITS/ML 10ML VIAL (SSI) SQ ×2 (16:29→20:40)
[2023-11-01 16:51] LABS: POC Glucose,Bedside 165 (70-110)
[2023-11-01 20:35] LABS: POC Glucose,Bedside 205 (70-110)
[2023-11-01] MEDS: HEPARIN SODIUM 5,000 UNIT/ML VIAL 5000 UNIT SQ (20:40)
[2023-11-01] MEDS: ATORVASTATIN 20MG TABLET 20 MG PO (20:40)
[2023-11-01] MEDS: MELATONIN 5MG TABLET 5 MG PO (20:41)
[2023-11-01] MEDS: PANTOPRAZOLE 40MG TABLET 40 MG PO (20:41)
[2023-11-01] MEDS: TRAZODONE 50MG TABLET 12.5 MG PO (20:41)
[2023-11-02] VITALS (7 sets, daily range): BP systolic 130–142; BP diastolic 56–67; PULSE 61–71; RESP 16–18; TEMP 36.6–37.1; O2SAT 86–97; BMI 26.4
[2023-11-02 05:41] LABS: POC Glucose,Bedside 126 (70-110)
[2023-11-02 07:47] LABS: Albumin Level 2.9 g/dl (3.5-5.0); Chloride 105 mmol/L (98-107); Potassium 4.2 mmoL/L (3.5-5.1); Sodium 135 mmol/L (136-145)
--- NOTE | 2023-11-02 07:47 | SW/DCPLANNER ---
Addendum entered by Shannon Gibson 11/03/23 10:19: I have notified Carlene espinal/ [facility] that patient will return today. Original Note: This patient currently resides at [facility] level of care. Updated patient information has been faxed to Carlene espinal/ [facility]. I will continue to follow up until patient is medically stable for discharge. Discharge date is unknown at this time.
[2023-11-02 07:49] LABS: Blood Urea Nitrogen 66 mg/dl (7-17); Creatinine Clearance Estimated 13 mL/min (50-200); Estimated Glomerular Filt Rate 13 ml/min (>60); GFR (African American) 15 ML/MIN (>60)
[2023-11-02 07:50] LABS: Alanine Aminotransferase 17 U/L (12-78); Alkaline Phosphatase 69 U/L (38-126); Anion Gap 5.2 mEq/L (5-15); Aspartate Amino Transferase 27 U/L (14-36); Bilirubin,Total 0.4 mg/dl (0.2-1.3); Calcium 8.5 mg/dl (8.4-10.2); Carbon Dioxide 29 mmol/L (22.0-30.0); Globulin 2.9 g/dL (1.3-3.2); Glucose 114 mg/dl (74-100); Magnesium 1.9 mg/dl (1.6-2.3); Total Protein,Serum 5.8 g/dl (6.3-8.2)
[2023-11-02 08:06] LABS: Basophils % 0.5 % (0.1-2.0); Eosinophils # 0.2 K/mm3 (0.0-0.4); Eosinophils % 3.2 % (0.1-12.0); Hematocrit 24.8 % (37.0-47.0); Hemoglobin 7.8 g/dL (12.2-16.2); Lymphocytes # 1.7 K/mm3 (0.7-4.5); Lymphocytes % 22.9 % (10-50); Mean Corpuscular HGB Conc 31.6 g/dL (31.8-35.4); Mean Corpuscular Hemoglobin 31.1 pg (27.0-31.2); Mean Corpuscular Volume 98.3 fl (81-99); Mean Platelet Volume 8.3 fl (7.4-10.4); Monocytes # 0.4 K/mm3 (0.1-1.0); Monocytes % 5.1 % (1.7-9.3); Neutrophils # 5.1 K/mm3 (1.8-7.8); Neutrophils % 68.4 % (37.0-80.0); Platelet Count 384 K/mm3 (142-424); Red Blood Count 2.52 M/mm3 (4.20-5.40); Red Cell Distribution Width 14.2 % (11.5-17.5); White Blood Count 7.5 K/mm3 (4.8-10.8)
[2023-11-02] MEDS: BUMETANIDE 1MG/4ML VIAL 2 MG IV (09:19)
[2023-11-02] MEDS: CARVEDILOL 6.25MG TABLET 6.25 MG PO ×2 (09:19→20:16)
[2023-11-02] MEDS: HEPARIN SODIUM 5,000 UNIT/ML VIAL 5000 UNIT SQ (09:19)
[2023-11-02] MEDS: AMLODIPINE 10MG TABLET 10 MG PO (09:19)
[2023-11-02] MEDS: CITALOPRAM 40MG TABLET 40 MG PO (09:20)
--- NOTE | 2023-11-02 11:29 | DIET.NUTRFU ---
Called and verified diet at [facility]. She receives MSOFT chopped meats with gravy, no bread, no straws and built up silverware. Will update our diet accordingly.
[2023-11-02] MEDS: humaLOG 100 UNITS/ML 10ML VIAL (SSI) SQ ×2 (11:44→17:12)
[2023-11-02 11:46] LABS: POC Glucose,Bedside 164 (70-110)
--- NOTE | 2023-11-02 13:42 | EXP.CARD.CON ---
History of Present Illness History of Present Illness Consult date: 11/02/23 Requesting physician: Ilan Frye Consult reason: shortness of breath Chief complaint: SOA History of present illness: This is a 73-year-old female who presented to the emergency department from [facility] with shortness of breath and increased oxygen requirements. She has a past medical history of HFpEF, chronic kidney disease, chronic anemia and functional quadriplegia. The patient gives very little history and most of her information is obtained from her medical records. The patient was short of breath for approximately 2 days prior to her admission to the hospital. She also was requiring higher oxygen than her baseline. She denies any chest pain or pressure. She denies any associated cough. She denies any lower extremity edema. She denies any fever, chills, nausea, vomiting, diarrhea, PND orthopnea. The patient states that she is very sleepy today and really gives no other information other than that. [facility] Disclaimer: The information contained in this section may have been updated after the patient was seen, as this information can be updated by other users. Medical History (Updated 11/02/23 @ 13:46 by Meghan Son APRN) (HFpEF) heart failure with preserved ejection fraction Osteoarthritis Insomnia Breast cancer GERD (gastroesophageal reflux disease) Dementia Anxiety Major depressive disorder HTN (hypertension) HLD (hyperlipidemia) Diabetes mellitus type 2 in obese CVA (cerebral vascular accident) Family History Other No significant family history Social History (Updated 10/31/23 @ 18:48 by Rosalie Kohler RN) Smoking Status: Never smoker second hand exposure: No alcohol intake: never substance use type: denies use current occupational status: disabled Travel in the last 8 weeks: None housing: senior living Review of Systems Review of Systems Review of systems:: pertinent systems reviewed and negative unless documented below Constitutional Constitutional: Reports system reviewed and no additional complaints, except as documented, Reports fatigue and Reports lethargy Eyes Eyes: Reports system reviewed and no additional complaints, except as documented ENT Ears, Nose, Mouth, and Throat: Reports system reviewed and no additional complaints, except as documented *Cardiovascular Cardiovascular: Reports system reviewed and no additional complaints, except as documented, Denies chest pain, Reports dyspnea and Reports dyspnea on exertion *Respiratory Respiratory: Reports system reviewed and no additional complaints, except as documented, Reports dyspnea and Reports dyspnea on exertion *Gastrointestinal Gastrointestinal: Reports system reviewed and no additional complaints, except as documented *Genitourinary Genitourinary: Reports system reviewed and no additional complaints, except as documented *Musculoskeletal Musculoskeletal: Reports system reviewed and no additional complaints, except as documented Integumentary/Breasts Skin/Breast: Reports system reviewed and no additional complaints, except as documented *Neurologic Neurologic: Reports system reviewed and no additional complaints, except as documented Psychiatric Psychiatric: Reports system reviewed and no additional complaints, except as documented Endocrine Endocrine: Reports system reviewed and no additional complaints, except as documented and Reports fatigue Hematologic/Lymphatic Hematologic/Lymphatic: Reports system reviewed and no additional complaints, except as documented Allergic/Immunologic Allergic/Immunologic: Reports system reviewed and no additional complaints, except as documented Exam Data for Last 24 hours Vital signs and Labs for Last 24 Hours: Temp Pulse Resp BP Pulse Ox O2 Del Method O2 Flow Rate 98.0 F 70 18 141/67 H 96 Nasal Cannula 2 11/02/23 11:58 11/02/23 11:58 11/02/23 11:58 11/02/23 11:58 11/02/23 11:58 11/02/23 13:00 11/02/23 11:58 Laboratory Results - last 24 hr 11/01/23 16:27: POC Glucose 165 H 11/01/23 20:09: POC Glucose 205 H 11/02/23 05:30: POC Glucose 126 H 11/02/23 07:09: WBC 7.5, RBC 2.52 L, Hgb 7.8 L, Hct 24.8 L, MCV 98.3, MCH 31.1, MCHC 31.6 L, RDW 14.2, Plt Count 384, MPV 8.3, Neut % (Auto) 68.4, Lymph % (Auto) 22.9, [place] % (Auto) 5.1, Eos % (Auto) 3.2, Baso % (Auto) 0.5, Neut # (Auto) 5.1, Lymph # (Auto) 1.7, [place] # (Auto) 0.4, Eos # (Auto) 0.2, Baso # (Auto) 0.0, Sodium 135 L, Potassium 4.2, Chloride 105, Carbon Dioxide 29, Anion Gap 5.2, BUN 66 H, Creatinine 3.50 H, Estimated Creat Clear 13, Estimated GFR 13 L*, Est GFR ( Amer) 15 L*, Glucose 114 H, Calcium 8.5, Magnesium 1.9, Total Bilirubin 0.4, AST 27, ALT 17, Alkaline Phosphatase 69, Total Protein 5.8 L, Albumin 2.9 L, Globulin 2.9, Albumin/Globulin Ratio 1.0 L 11/02/23 11:39: POC Glucose 164 H I & O for Last 24 hours: Intake & Output 10/30/23 10/31/23 11/01/23 11/02/23 23:59 23:59 23:59 23:59 Intake Total 780 / 1180 520 / 520 Output Total 800 / 800 1600 / 1600 850 / 850 Balance -800 / -600 -820 / -420 -330 / -330 Weight 132 lb 11.2 oz 138 lb 1.6 oz 134 lb 7.712 oz Constitutional Constitutional: no acute distress and average body habitus *Routine HEENT Exam Head: Present normocephalic and atraumatic ENT: Present mucous membranes moist *Routine Neck Exam Neck: Present supple, full ROM and normal carotid upstroke; Absent JVD, carotid bruit or lymphadenopathy *Routine Respiratory Exam Respiratory: Present CTA bilaterally, normal respiratory effort, able to speak in complete sentences and symmetric chest movement *Routine Cardiovascular Exam Cardiovascular: Present RRR, Normal S1 and Normal S2; Absent murmur or gallop *Routine Abdominal Exam Abdominal: Present soft and normoactive bowel sounds; Absent tenderness, distended or organomegaly *Routine Extremities Exam Extremities: Present pulses intact and normal capillary refill; Absent cyanosis, clubbing or edema *Routine Skin Exam Skin: Present intact and warm; Absent erythema *Routine Neurological Exam Neurological: Present alert, oriented X3 and CN II-XII intact; Absent sensory deficit or motor deficit Routine Psychiatric Exam Psychiatric: Present normal affect Meds Home Medications and Allergies Home Medications ?Medication ?Instructions ?Recorded ?Confirmed ?Type amlodipine 10 mg tablet 10 mg PO DAILY BLOOD PRESSURE 07/04/22 11/01/23 History anastrozole 1 mg tablet 1 mg PO DAILY HX OF BENIGN TUMORS 07/04/22 11/01/23 History atorvastatin 20 mg tablet 20 mg PO HS Cholesterol 07/04/22 11/01/23 History carvedilol 6.25 mg tablet 6.25 mg PO BID BLOOD PRESSURE 07/04/22 11/01/23 History ergocalciferol (vitamin D2) 1,250 1,250 mcg PO Q336H Supplement 07/04/22 11/01/23 History mcg (50,000 unit) capsule escitalopram oxalate 20 mg tablet 20 mg PO DAILY Depression 07/04/22 11/01/23 History lactulose 20 gram/30 mL oral 20 g PO DAILYP PRN Constipation 07/04/22 11/01/23 History solution omeprazole 20 mg capsule,delayed 20 mg PO HS Acid reflux 07/04/22 11/01/23 History release oxybutynin chloride 15 mg 15 mg PO DAILY BLADDER 07/04/22 11/01/23 History tablet,extended release 24 hr trazodone 50 mg tablet 12.5 mg PO HS Insomnia 07/04/22 11/01/23 History vits no.130-ferrous fum 1 ea PO 1700 #0 tabs 07/07/22 11/01/23 Rx 27 mg iron-folic acid 800 mcg tablet ( Vitamin) calcium carbonate (Calcium 600) 600 mg PO DAILY 03/06/23 11/01/23 History melatonin 3 mg capsule 3 mg PO HS 03/06/23 11/01/23 History sennosides 8.6 mg-docusate sodium 1 tab PO BID 03/06/23 11/01/23 History 50 mg tablet (Senna-S) acetaminophen 500 mg tablet 500 mg PO QIDP PRN Mild Pain 11/01/23 11/01/23 History (Scale Score 1-4) alendronate 35 mg tablet 35 mg PO MATUTE 11/01/23 11/01/23 History bumetanide 2 mg tablet 2 mg PO DAILY 11/01/23 11/01/23 History metoclopramide HCl 5 mg tablet 5 mg PO TID 11/01/23 11/01/23 History New Prescriptions to Start Prescriptions: Allergies Allergy/AdvReac Type Severity Reaction Status Date / Time phenol [From Chloraseptic] Allergy Unknown Verified 10/27/23 13:35 benzocaine Allergy Verified 10/27/23 13:35 [From Chloraseptic Sore Throat] ciprofloxacin [From Cipro] Allergy Verified 10/27/23 13:35 diazepam [From Valium] Allergy Verified 10/27/23 13:35 ibuprofen [From Motrin] Allergy Verified 10/27/23 13:35 menthol Allergy Verified 10/27/23 13:35 morphine Allergy Verified 10/27/23 13:35 nitrofurantoin Allergy Verified 10/27/23 13:35 [From Macrobid] ondansetron [From Zofran] Allergy Verified 10/27/23 13:35 propoxyphene Allergy Verified 10/27/23 13:35 sulfamethoxazole Allergy Verified 10/27/23 13:35 [From Bactrim] trimethoprim [From Bactrim] Allergy Verified 10/27/23 13:35 Assessment and Plan *Assessment and plan (1) (HFpEF) heart failure with preserved ejection fraction: Status: Acute Qualifiers: Heart failure chronicity: acute on chronic Qualified Code(s): I50.33 - Acute on chronic diastolic (congestive) heart failure Category: Medical Code(s): I50.30 - Unspecified diastolic (congestive) heart failure (2) Stage 4 chronic kidney disease: Status: Chronic Category: Medical Code(s): N18.4 - Chronic kidney disease, stage 4 (severe) (3) HTN (hypertension): Status: Acute Qualifiers: Hypertension type: primary hypertension Qualified Code(s): I10 - Essential (primary) hypertension Category: Medical Code(s): I10 - Essential (primary) hypertension (4) Anemia: Status: Acute Qualifiers: Anemia type: unspecified type Qualified Code(s): D64.9 - Anemia, unspecified Category: Medical Code(s): D64.9 - Anemia, unspecified (5) Dementia: Status: Acute Qualifiers: Dementia type: unspecified type Dementia severity: unspecified severity Dementia behavioral or psychological symptom: unspecified whether behavioral, psychotic, or mood disturbance or anxiety Qualified Code(s): F03.90 - Unspecified dementia, unspecified severity, without behavioral disturbance, psychotic disturbance, mood disturbance, and anxiety Category: Medical Code(s): F03.90 - Unspecified dementia, unspecified severity, without behavioral disturbance, psychotic disturbance, mood disturbance, and anxiety (6) Bilateral pleural effusion: Status: Acute Category: Medical Code(s): J90 - Pleural effusion, not elsewhere classified (7) HLD (hyperlipidemia): Status: Acute Qualifiers: Hyperlipidemia type: mixed hyperlipidemia Qualified Code(s): E78.2 - Mixed hyperlipidemia Category: Medical Code(s): E78.5 - Hyperlipidemia, unspecified (8) Diabetes mellitus type 2 in obese: Status: Acute Category: Medical Code(s): E11.69 - Type 2 diabetes mellitus with other specified complication; E66.9 - Obesity, unspecified Plan Plan: 1. The patient is admitted to the hospital for acute on chronic HFpEF exacerbation. She has been diuresed with IV Bumex. 2. The patient had an echocardiogram which shows an ejection fraction of 65 to 70%. The patient is a little bit hyperdynamic. She has a trivial pericardial effusion. 3. The patient being hyperdynamic may be an indicator that she is now on the dry side. Will cut her Bumex back to 1 mg IV daily to see if her renal function improves. 4. The patient does have chronic kidney disease her creatinine is up to 3.5 today. Will obtain a BMP in the morning to follow her renal function. 5. She denies any chest pain or pressure. The patient did have a slight elevation in her troponin at 0.04 x 2. She would benefit from an ischemic evaluation on an outpatient basis once she has been discharged from the hospital. 6. Her blood pressure is well-controlled. Continue amlodipine and carvedilol. 7. Her LDL goal is less than 55. She is on a statin. 8. Continue Coreg for her HFpEF. 9. No ANAND/ARB due to her renal function. 10. Consider Jardiance/Farxiga once she is euvolemic. 11. She did have an elevated D-dimer at 1.89. Dr. Hunt does recommend therapeutic Lovenox at this time since she is unable to undergo CT to rule out a PE due to her renal function. 12. Further recommendations were made pending the patient's response to treatment. Thank you for the opportunity to help participate in the care of this patient. All recommendations and orders are per Dr. Thibodeaux.
[2023-11-02] MEDS: ENOXAPARIN 60MG/0.6ML SYRINGE 60 MG SQ (14:28)
--- NOTE | 2023-11-02 15:06 | EXP.ACUTE.PN ---
Subjective *Date: 11/02/23 *Time: 15:13 Interval history: Diuresing suboptimally. Negative at least 1.5 L in the past 24 hours. Stable on 2 L. No significant change positive or negative today. No nausea or vomiting. No fever. Medical Exam Vital signs and Labs for Last 24 Hours: Vital Signs Temp Pulse Resp BP Pulse Ox O2 Del Method O2 Flow Rate 11/02/23 13:00 Nasal Cannula 11/02/23 11:58 98.0 F 70 18 141/67 H 96 Nasal Cannula 2 11/02/23 11:00 Nasal Cannula 11/02/23 09:31 86 L Room Air 11/02/23 09:00 Nasal Cannula 11/02/23 08:00 98.7 F 64 16 131/56 L 97 Nasal Cannula 2 11/02/23 07:00 Nasal Cannula 2 11/02/23 05:00 Nasal Cannula 2 11/02/23 04:00 98.3 F 61 18 142/64 H 95 Nasal Cannula 2 11/02/23 03:00 Nasal Cannula 2 11/02/23 01:00 Nasal Cannula 2 11/02/23 00:00 98.4 F 63 18 135/62 92 L Nasal Cannula 2 11/01/23 23:00 Nasal Cannula 2 11/01/23 21:00 Nasal Cannula 2 11/01/23 20:00 Nasal Cannula 2 11/01/23 20:00 98.6 F 75 16 140/67 91 L Nasal Cannula 2 11/01/23 19:00 Nasal Cannula 2 11/01/23 17:00 Nasal Cannula 2 11/01/23 16:00 98.8 F 69 16 129/59 L 93 L Nasal Cannula 2 Intake and Output 11/01/23 11/02/23 11/02/23 23:59 07:59 15:59 Intake Total 340 / 1180 400 / 520 120 / 520 Output Total 1200 / 1600 100 / 850 750 / 850 Balance -860 / -420 300 / -330 -630 / -330 Intake: Intake, Oral Amount 340 / 1180 400 / 520 120 / 520 Output: Output, Urine Amount 1200 / 1600 100 / 850 750 / 850 Other: Number of Unmeasured Voids 0 Weight 61.099 kg 61 kg Patient Weight 11/02/23 23:59 Weight 61 kg Laboratory Results - last 24 hr 11/01/23 16:27: POC Glucose 165 H 11/01/23 20:09: POC Glucose 205 H 11/02/23 05:30: POC Glucose 126 H 11/02/23 07:09: WBC 7.5, RBC 2.52 L, Hgb 7.8 L, Hct 24.8 L, MCV 98.3, MCH 31.1, MCHC 31.6 L, RDW 14.2, Plt Count 384, MPV 8.3, Neut % (Auto) 68.4, Lymph % (Auto) 22.9, [place] % (Auto) 5.1, Eos % (Auto) 3.2, Baso % (Auto) 0.5, Neut # (Auto) 5.1, Lymph # (Auto) 1.7, [place] # (Auto) 0.4, Eos # (Auto) 0.2, Baso # (Auto) 0.0, Sodium 135 L, Potassium 4.2, Chloride 105, Carbon Dioxide 29, Anion Gap 5.2, BUN 66 H, Creatinine 3.50 H, Estimated Creat Clear 13, Estimated GFR 13 L*, Est GFR ( Amer) 15 L*, Glucose 114 H, Calcium 8.5, Magnesium 1.9, Total Bilirubin 0.4, AST 27, ALT 17, Alkaline Phosphatase 69, Total Protein 5.8 L, Albumin 2.9 L, Globulin 2.9, Albumin/Globulin Ratio 1.0 L 11/02/23 11:39: POC Glucose 164 H I & O for Labs for Last 24 Hours: Intake & Output 10/30/23 10/31/23 11/01/23 11/02/23 23:59 23:59 23:59 23:59 Intake Total 780 / 1180 520 / 520 Output Total 800 / 800 1600 / 1600 850 / 850 Balance -800 / -600 -820 / -420 -330 / -330 Weight 60.192 kg 62.641 kg 61 kg Constitutional: Present no acute distress, average body habitus and chronically ill appearing Head: Present atraumatic and normocephalic Respiratory: Present crackles (Interval improvement in bilateral crackles, faint, end inspiratory.) and normal respiratory effort; Absent rhonchi or wheezes Cardiac: Present Reg Rate and Rhythm GI: Present normal bowel sounds; Absent tenderness Extremities: Present normal inspection, full ROM and edema (Trace); Absent tenderness Skin: Present intact; Absent erythema Neuro: Present Grossly Intact, alert, awake and moves all extremities Comment:: Tremor in upper extremities Assessment and Plan *Assessment and plan (1) Acute on chronic diastolic (congestive) heart failure: Status: Acute Category: Medical Code(s): I50.33 - Acute on chronic diastolic (congestive) heart failure (2) Stage 4 chronic kidney disease: Status: Chronic Category: Medical Code(s): N18.4 - Chronic kidney disease, stage 4 (severe) (3) HTN (hypertension): Status: Acute Qualifiers: Hypertension type: primary hypertension Qualified Code(s): I10 - Essential (primary) hypertension Category: Medical Code(s): I10 - Essential (primary) hypertension (4) Anemia: Status: Acute Qualifiers: Anemia type: unspecified type Qualified Code(s): D64.9 - Anemia, unspecified Category: Medical Code(s): D64.9 - Anemia, unspecified (5) Dementia: Status: Acute Qualifiers: Dementia behavioral or psychological symptom: unspecified whether behavioral, psychotic, or mood disturbance or anxiety Dementia severity: unspecified severity Dementia type: unspecified type Qualified Code(s): F03.90 - Unspecified dementia, unspecified severity, without behavioral disturbance, psychotic disturbance, mood disturbance, and anxiety Category: Medical Code(s): F03.90 - Unspecified dementia, unspecified severity, without behavioral disturbance, psychotic disturbance, mood disturbance, and anxiety (6) Bilateral pleural effusion: Status: Acute Category: Medical Code(s): J90 - Pleural effusion, not elsewhere classified (7) HLD (hyperlipidemia): Status: Acute Qualifiers: Hyperlipidemia type: mixed hyperlipidemia Qualified Code(s): E78.2 - Mixed hyperlipidemia Category: Medical Code(s): E78.5 - Hyperlipidemia, unspecified (8) Diabetes mellitus type 2 in obese: Status: Acute Category: Medical Code(s): E11.69 - Type 2 diabetes mellitus with other specified complication; E66.9 - Obesity, unspecified (9) Volume overload: Status: Resolved Category: Medical Code(s): E87.70 - Fluid overload, unspecified (10) Pulmonary edema: Status: Resolved Category: Medical Code(s): J81.1 - Chronic pulmonary edema (11) Functional quadriplegia: Status: Acute Category: Medical Code(s): R53.2 - Functional quadriplegia (12) Hypoxemia: Status: Acute Category: Medical Code(s): R09.02 - Hypoxemia (13) MADAY (acute kidney injury): Status: Acute Category: Medical Code(s): N17.9 - Acute kidney failure, unspecified Plan 73-year-old female with dementia and hypertension, presents with acute worsening of heart failure. Necessitating 3 L oxygen. Discussed case with ER, request admission for diuresis and further management of MADAY and heart failure. I agreed to admit. Tolerating diuresis, down at least 1 L since admission. Kidney function staying stable. Continues to require inpatient management. Wean oxygen as tolerated. Problems addressed as follows: Acute on chronic diastolic heart failure Hypoxia Pleural effusions/pulmonary edema Volume overload Hypertension -Significant volume overload on imaging, small effusion on right side with bilateral lower lung field opacification and prominent fissures. Pleural effusions and pulmonary edema -Echo obtained 1 year ago showing elevated RVSP of 64, EF 60 to 70%, grade 2 diastolic dysfunction; Repeat limited echo with preliminary read showing hyperdynamic EF. -Continue diuresis with Bumex 1mg IV twice daily. continue with goal -2 L daily -Addressing hypertension with diuresis -Continue amlodipine 10 mg daily, carvedilol 6.25 mg twice daily. -Continue supplemental oxygen with goal saturation greater 90%, currently on 2 L; baseline on room air -BNP elevated at 10,000, troponin detectable at 0.04, no chest pain. In the setting of worsening MADAY and volume overload, suspect troponin leak due to heart strain. Will continue to monitor. -D-dimer elevated on admission. Cardiology recommends initiating therapeutic dosing of anticoagulation as we are unable to scan her chest to look for PEs -Discussed case with cardiology, recommend diuresis at decreased dose. Close monitoring kidney function. And further evaluation over the next 24 to 48 hours. Functional quadriplegia -Secondary to her dementia; requires near total care. -Patient is bedbound, Alexi score of 13. Incontinent -Requires assistance with all ADLs. MADAY on ckd CKD 4 -Creatinine baseline of 2.2. Creatinine increased today to 3.5, BUN 66. Potassium 4.2, magnesium 1.9. repeat CMP, CBC, magnesium ordered for the morning. Anemia -Monitor daily, appears chronic in nature. -Chronic anemia, hemoglobin 7.8, Transfusion threshold hemoglobin less than 7 Hyperglycemia -Glucose 97 on admission, A1c 6.3. Prediabetic versus well-controlled diabetes -Fingersticks ACHS, sliding scale and Continue home meds for mood and sleep including melatonin 5 mg nightly, trazodone 50 mg nightly, and escitalopram 20 mg daily. DNR Cardiac lovenox 1mg/kg daily for therapeutic dosing, renally adjusted.
[2023-11-02 17:11] LABS: POC Glucose,Bedside 205 (70-110)
--- NOTE | 2023-11-02 17:36 | PC.NURSE ---
pt has rested majority of the shift. tolerating 2LNC well. no c/o pain this shift. pt has remained a/o to self and sometimes place. insulin given per sliding scale. she is still voiding per conniewick, urine yellow and clear. no further requests at this time, call light within reach.
--- NOTE | 2023-11-02 19:29 | CA_ITS ---
APPROVED REPORT EXAM: Limited 2D Echocardiogram Option Trader: Patria Perez CRT Ht: 4 ft 11 in Wt: 138lbs BSA: 1.58 BP: 154/85 mmHg Indications: ef check, CHF, sob, DNR, Quadriplegic M-Mode Dimensions RVDd 2.18 cm (0.9-2.6) LVDd 5.04 cm (3.5-5.7) LVDs 2.96 cm (3.5-5.7) IVSd 0.68 cm (0.6-1.1) PWd 0.93 cm (0.6-1.1) EF (Teich) 71.90% FS 41.30% EDV (Teich) 120.50 mL ESV (Teich) 33.90 mL Other Information Study Quality: Fair Conclusion This is a limited TTE to evaluate for LV function. Limited windows were obtained. The left ventricle is normal in size. There is increased LV wall thickness. There is hyperdynamic LV systolic function. No regional wall motion abnormalities are noted. LVEF is 70%. Electronically signed by : Lily Thibodeaux MD 11/02/2023 20:08:37
[2023-11-02] MEDS: MELATONIN 5MG TABLET 5 MG PO (20:16)
[2023-11-02] MEDS: ATORVASTATIN 20MG TABLET 20 MG PO (20:16)
[2023-11-02] MEDS: PANTOPRAZOLE 40MG TABLET 40 MG PO (20:16)
[2023-11-02] MEDS: TRAZODONE 50MG TABLET 12.5 MG PO (20:17)
[2023-11-02 21:26] LABS: POC Glucose,Bedside 150 (70-110)
[2023-11-03] VITALS: BP 142/54; PULSE 64; RESP 18; TEMP 37.1; O2SAT 96
[2023-11-03 04:00] VITALS: BP 123/55; PULSE 66; RESP 20; TEMP 36.8; O2SAT 96; BMI 25.2
[2023-11-03 05:39] LABS: POC Glucose,Bedside 137 (70-110)
[2023-11-03 08:00] VITALS: BP 134/51; PULSE 64; RESP 18; TEMP 36.6; O2SAT 97
[2023-11-03 08:08] LABS: Basophils % 0.5 % (0.1-2.0); Eosinophils # 0.2 K/mm3 (0.0-0.4); Eosinophils % 2.8 % (0.1-12.0); Hematocrit 23.9 % (37.0-47.0); Hemoglobin 7.7 g/dL (12.2-16.2); Lymphocytes # 2.2 K/mm3 (0.7-4.5); Lymphocytes % 31.5 % (10-50); Mean Corpuscular HGB Conc 32.1 g/dL (31.8-35.4); Mean Corpuscular Hemoglobin 31.6 pg (27.0-31.2); Mean Corpuscular Volume 98.4 fl (81-99); Mean Platelet Volume 7.4 fl (7.4-10.4); Monocytes # 0.4 K/mm3 (0.1-1.0); Monocytes % 6.1 % (1.7-9.3); Neutrophils # 4.2 K/mm3 (1.8-7.8); Neutrophils % 59.1 % (37.0-80.0); Platelet Count 350 K/mm3 (142-424); Red Blood Count 2.43 M/mm3 (4.20-5.40); Red Cell Distribution Width 13.9 % (11.5-17.5); White Blood Count 7.1 K/mm3 (4.8-10.8)
[2023-11-03 08:16] LABS: Alanine Aminotransferase 14 U/L (12-78); Albumin Level 2.8 g/dl (3.5-5.0); Albumin/Globulin Ratio 1.1 (1.1-1.8); Alkaline Phosphatase 59 U/L (38-126); Anion Gap 6.1 mEq/L (5-15); Aspartate Amino Transferase 24 U/L (14-36); Bilirubin,Total 0.3 mg/dl (0.2-1.3); Blood Urea Nitrogen 65 mg/dl (7-17); Calcium 8.6 mg/dl (8.4-10.2); Carbon Dioxide 30 mmol/L (22.0-30.0); Chloride 104 mmol/L (98-107); Creatinine Clearance Estimated 13 mL/min (50-200); Estimated Glomerular Filt Rate 13 ml/min (>60); GFR (African American) 16 ML/MIN (>60); Globulin 2.6 g/dL (1.3-3.2); Glucose 113 mg/dl (74-100); Potassium 4.1 mmoL/L (3.5-5.1); Sodium 136 mmol/L (136-145); Total Protein,Serum 5.4 g/dl (6.3-8.2)
[2023-11-03 09:20] LABS: Cholesterol 120 mg/dl (140-200); HDL Cholesterol 40 mg/dl (40-60); Triglycerides 81 mg/dl (30-150); VLDL Cholesterol 16 mg/dL (0-40)
[2023-11-03 09:31] LABS: Direct LDL Cholesterol 52.58 mg/dL (100-129)
[2023-11-03] MEDS: AMLODIPINE 10MG TABLET 10 MG PO (09:31)
[2023-11-03] MEDS: CARVEDILOL 6.25MG TABLET 6.25 MG PO (09:31)
[2023-11-03] MEDS: CITALOPRAM 40MG TABLET 40 MG PO (09:31)
[2023-11-03] MEDS: BUMETANIDE 1MG/4ML VIAL 1 MG IV (09:32)
--- NOTE | 2023-11-03 10:21 | EXP.DC.SUM ---
General Admission date:: 10/31/23 Discharge date: 11/03/23 HPI HPI HPI: Ms. Moore is a 73-year-old female who is a long-term resident at [facility] with history of dementia, heart failure with preserved ejection fraction, CKD 4, chronic anemia, functional quadriplegia. She presented to the ER with worsening shortness of breath and oxygen requirement from baseline. Pleasant on exam. On initial workup, she is conversational and reports that she is felt short of breath for the past day or 2. Denies any cough, chest pain, nausea or vomiting. Workup showed worsening kidney function and significant pulmonary edema with prominent fissures on chest imaging. Given her increased oxygen from baseline, abnormal labs, and abnormal chest imaging concerning for volume overload, medicine consulted for admission and further management. On evaluation, patient is on 3 L nasal cannula with sats in the low 90s. Has a tremor at baseline. Making good urine after receiving a dose of Bumex in the ER. Discussed obtaining CTA of chest for PE with the ER physician, recommend at this time we hold due to concern that contrast load will significantly hurt kidneys as she is high risk for contrast-induced nephropathy and is a poor candidate for dialysis. Monitor for improvement with breathing with diuresis as clinically her symptoms fit with CHF exacerbation and volume overload. Hospital Course Hospital Course Hospital Course: 73-year-old female with dementia and hypertension, presents with acute worsening of heart failure. Necessitating 3 L oxygen. Discussed case with ER, request admission for diuresis and further management of MADAY and heart failure. I agreed to admit. Tolerated aggressive diuresis. -2-1/2 L since admission. Kidney function did not show any improvement, but did not significantly worsen either. Cardiology assisted with care. Weaned oxygen to 1 L during admission. Plan to transition to oral diuresis and [facility]. Problems addressed as follows: Acute on chronic diastolic heart failure Hypoxia Pleural effusions/pulmonary edema Volume overload Hypertension -Significant volume overload on imaging, small effusion on right side with bilateral lower lung field opacification and prominent fissures. Pleural effusions and pulmonary edema. Echo obtained 1 year ago showing elevated RVSP of 64, EF 60 to 70%, grade 2 diastolic dysfunction; Repeat limited echo with consistent hyperdynamic state. No significant change at this time. Continues to have heart failure with preserved ejection fraction. Continue p.o. Bumex 1 mg twice daily. Cardiology assisting with care. Recommend continuing amlodipine 10 mg daily, carvedilol 6.25 mg twice daily. Supplemental oxygen as needed for goal sats greater 90%. Recommend 1 to 2 L continuous. Please obtain CBC, CMP, magnesium in the next 3 to 4 days to monitor electrolytes and kidney function for stability. Functional quadriplegia -Secondary to her dementia; requires near total care. Patient is bedbound, Alexi score of 13. Incontinent. Requires assistance with all ADLs. MADAY on ckd CKD 4 -Creatinine baseline of 2.2 within the past 3 months. Increased to 3.3 on admission. Has been stable in the 3.3-3.4 range. BUN 65. Unfortunately I am concerned that her kidney function is worsening. She is a poor candidate for dialysis. Recommend continued goals of care discussions with family. Potassium normal at 4.1 on day of discharge. Anemia -Monitor daily, appears chronic in nature. Suspect secondary to chronic kidney disease. Chronic anemia, hemoglobin 7.7 on day of discharge. No transfusion indicated. Hyperglycemia -Glucose 97 on admission, A1c 6.3. Prediabetic versus well-controlled diabetes. No treatment indicated at this time. Continue home meds for mood and sleep including melatonin 5 mg nightly, trazodone 50 mg nightly, and escitalopram 20 mg daily. DNR during admission. Total time spent on discharge 32 minutes in counseling, documentation, chart review, and direct care with patient. Exam Data for Last 24 hours Vital signs and Labs for Last 24 Hours: Temp Pulse Resp BP Pulse Ox O2 Del Method O2 Flow Rate 97.8 F 64 18 134/51 L 97 Nasal Cannula 1 11/03/23 08:00 11/03/23 08:00 11/03/23 08:00 11/03/23 08:00 11/03/23 08:00 11/03/23 09:00 11/03/23 09:00 Laboratory Results - last 24 hr 11/02/23 11:39: POC Glucose 164 H 11/02/23 16:54: POC Glucose 205 H 11/02/23 20:14: POC Glucose 150 H 11/03/23 05:26: POC Glucose 137 H 11/03/23 06:38: WBC 7.1, RBC 2.43 L, Hgb 7.7 L, Hct 23.9 L, MCV 98.4, MCH 31.6 H, MCHC 32.1, RDW 13.9, Plt Count 350, MPV 7.4, Neut % (Auto) 59.1, Lymph % (Auto) 31.5, [place] % (Auto) 6.1, Eos % (Auto) 2.8, Baso % (Auto) 0.5, Neut # (Auto) 4.2, Lymph # (Auto) 2.2, [place] # (Auto) 0.4, Eos # (Auto) 0.2, Baso # (Auto) 0.0, Sodium 136, Potassium 4.1, Chloride 104, Carbon Dioxide 30, Anion Gap 6.1, BUN 65 H, Creatinine 3.40 H, Estimated Creat Clear 13, Estimated GFR 13 L*, Est GFR ( Amer) 16 L*, Glucose 113 H, Calcium 8.6, Magnesium 2.0, Total Bilirubin 0.3, AST 24, ALT 14, Alkaline Phosphatase 59, Total Protein 5.4 L, Albumin 2.8 L, Globulin 2.6, Albumin/Globulin Ratio 1.1, Triglycerides 81, Cholesterol 120 L, LDL Cholesterol Direct 52.58 L, VLDL Cholesterol 16, HDL Cholesterol 40, Cholesterol/HDL Ratio 3.0 I & O for Last 24 hours: Intake & Output 10/31/23 11/01/23 11/02/23 11/03/23 23:59 23:59 23:59 23:59 Intake Total 780 / 1180 940 / 940 60 / 60 Output Total 800 / 800 1600 / 1600 1350 / 1350 250 / 250 Balance -800 / -600 -820 / -420 -410 / -410 -190 / -190 Weight 60.192 kg 62.641 kg 61 kg 58.287 kg Constitutional Constitutional: no acute distress, average body habitus, chronically ill appearing and cooperative *Routine HEENT Exam Head: Present normocephalic Eye: Present EOMI ENT: Present mucous membranes moist *Routine Neck Exam Neck: Present full ROM *Routine Respiratory Exam Respiratory: Present prolonged expiratory phase and diminished air movement; Absent rhonchi, wheezes or crackles *Routine Cardiovascular Exam Cardiovascular: Present RRR *Routine Abdominal Exam Abdominal: Present soft, normoactive bowel sounds and obese; Absent tenderness *Routine Rectal Exam Patient deferred: visual exam *Routine Exam Patient deferred: external exam *Routine Extremities Exam Extremities: Absent edema Routine Back/Spine/Pelvis Exam Back/Spine: Present full ROM *Routine Skin Exam Skin: Present intact and warm *Routine Neurological Exam Neurological: Present alert; Absent oriented X3 or altered mental status Comments: Oriented to self, tremor in hands Results Data Completed and Pending Labs on day of discharge: Labs from last 24 hours 11/03/23 11/03/23 11/02/23 06:38 05:26 20:14 WBC 7.1 RBC 2.43 L Hgb 7.7 L Hct 23.9 L MCV 98.4 MCH 31.6 H MCHC 32.1 RDW 13.9 Plt Count 350 MPV 7.4 Neut % (Auto) 59.1 Lymph % (Auto) 31.5 [place] % (Auto) 6.1 Eos % (Auto) 2.8 Baso % (Auto) 0.5 Neut # (Auto) 4.2 Lymph # (Auto) 2.2 [place] # (Auto) 0.4 Eos # (Auto) 0.2 Baso # (Auto) 0.0 Sodium 136 Potassium 4.1 Chloride 104 Carbon Dioxide 30 Anion Gap 6.1 BUN 65 H Creatinine 3.40 H Estimated Creat Clear 13 Estimated GFR 13 L* Est GFR ( Amer) 16 L* Glucose 113 H POC Glucose 137 H 150 H Calcium 8.6 Magnesium 2.0 Total Bilirubin 0.3 AST 24 ALT 14 Alkaline Phosphatase 59 Total Protein 5.4 L Albumin 2.8 L Globulin 2.6 Albumin/Globulin Ratio 1.1 Triglycerides 81 Cholesterol 120 L LDL Cholesterol Direct 52.58 L VLDL Cholesterol 16 HDL Cholesterol 40 Cholesterol/HDL Ratio 3.0 11/02/23 11/02/23 16:54 11:39 WBC RBC Hgb Hct MCV MCH MCHC RDW Plt Count MPV Neut % (Auto) Lymph % (Auto) [place] % (Auto) Eos % (Auto) Baso % (Auto) Neut # (Auto) Lymph # (Auto) [place] # (Auto) Eos # (Auto) Baso # (Auto) Sodium Potassium Chloride Carbon Dioxide Anion Gap BUN Creatinine Estimated Creat Clear Estimated GFR Est GFR ( Amer) Glucose POC Glucose 205 H 164 H Calcium Magnesium Total Bilirubin AST ALT Alkaline Phosphatase Total Protein Albumin Globulin Albumin/Globulin Ratio Triglycerides Cholesterol LDL Cholesterol Direct VLDL Cholesterol HDL Cholesterol Cholesterol/HDL Ratio DS: Diagnosis Discharge Diagnosis (1) Acute on chronic diastolic (congestive) heart failure: Status: Acute Code(s): I50.33 - Acute on chronic diastolic (congestive) heart failure (2) Stage 4 chronic kidney disease: Status: Chronic Code(s): N18.4 - Chronic kidney disease, stage 4 (severe) (3) HTN (hypertension): Status: Acute Code(s): I10 - Essential (primary) hypertension Qualifiers: Hypertension type: primary hypertension Qualified Code(s): I10 - Essential (primary) hypertension (4) Anemia: Status: Acute Code(s): D64.9 - Anemia, unspecified Qualifiers: Anemia type: unspecified type Qualified Code(s): D64.9 - Anemia, unspecified (5) Dementia: Status: Acute Code(s): F03.90 - Unspecified dementia, unspecified severity, without behavioral disturbance, psychotic disturbance, mood disturbance, and anxiety Qualifiers: Dementia behavioral or psychological symptom: unspecified whether behavioral, psychotic, or mood disturbance or anxiety Dementia severity: unspecified severity Dementia type: unspecified type Qualified Code(s): F03.90 - Unspecified dementia, unspecified severity, without behavioral disturbance, psychotic disturbance, mood disturbance, and anxiety (6) Bilateral pleural effusion: Status: Acute Code(s): J90 - Pleural effusion, not elsewhere classified (7) HLD (hyperlipidemia): Status: Acute Code(s): E78.5 - Hyperlipidemia, unspecified Qualifiers: Hyperlipidemia type: mixed hyperlipidemia Qualified Code(s): E78.2 - Mixed hyperlipidemia (8) Diabetes mellitus type 2 in obese: Status: Acute Code(s): E11.69 - Type 2 diabetes mellitus with other specified complication; E66.9 - Obesity, unspecified (9) Volume overload: Status: Resolved Code(s): E87.70 - Fluid overload, unspecified (10) Pulmonary edema: Status: Resolved Code(s): J81.1 - Chronic pulmonary edema (11) Functional quadriplegia: Status: Acute Code(s): R53.2 - Functional quadriplegia (12) Hypoxemia: Status: Acute Code(s): R09.02 - Hypoxemia (13) MADAY (acute kidney injury): Status: Acute Code(s): N17.9 - Acute kidney failure, unspecified Meds Home Medications and Allergies Home Medications ?Medication ?Instructions ?Recorded ?Confirmed ?Type amlodipine 10 mg tablet 10 mg PO DAILY BLOOD PRESSURE 07/04/22 11/01/23 History anastrozole 1 mg tablet 1 mg PO DAILY HX OF BENIGN TUMORS 07/04/22 11/01/23 History atorvastatin 20 mg tablet 20 mg PO HS Cholesterol 07/04/22 11/01/23 History carvedilol 6.25 mg tablet 6.25 mg PO BID BLOOD PRESSURE 07/04/22 11/01/23 History ergocalciferol (vitamin D2) 1,250 1,250 mcg PO Q336H Supplement 07/04/22 11/01/23 History mcg (50,000 unit) capsule escitalopram oxalate 20 mg tablet 20 mg PO DAILY Depression 07/04/22 11/01/23 History lactulose 20 gram/30 mL oral 20 g PO DAILYP PRN Constipation 07/04/22 11/01/23 History solution omeprazole 20 mg capsule,delayed 20 mg PO HS Acid reflux 07/04/22 11/01/23 History release oxybutynin chloride 15 mg 15 mg PO DAILY BLADDER 07/04/22 11/01/23 History tablet,extended release 24 hr trazodone 50 mg tablet 12.5 mg PO HS Insomnia 07/04/22 11/01/23 History vits no.130-ferrous fum 1 ea PO 1700 #0 tabs 07/07/22 11/01/23 Rx 27 mg iron-folic acid 800 mcg tablet ( Vitamin) calcium carbonate (Calcium 600) 600 mg PO DAILY 03/06/23 11/01/23 History melatonin 3 mg capsule 3 mg PO HS 03/06/23 11/01/23 History sennosides 8.6 mg-docusate sodium 1 tab PO BID 03/06/23 11/01/23 History 50 mg tablet (Senna-S) acetaminophen 500 mg tablet 500 mg PO QIDP PRN Mild Pain 11/01/23 11/01/23 History (Scale Score 1-4) alendronate 35 mg tablet 35 mg PO MATUTE 11/01/23 11/01/23 History bumetanide 2 mg tablet 1 mg (1/2 x 2 mg) PO BID 30 days 11/03/23 11/01/23 Rx #0 tabs New Prescriptions to Start Prescriptions: Allergies Allergy/AdvReac Type Severity Reaction Status Date / Time phenol [From Chloraseptic] Allergy Unknown Verified 10/27/23 13:35 benzocaine Allergy Verified 10/27/23 13:35 [From Chloraseptic Sore Throat] ciprofloxacin [From Cipro] Allergy Verified 10/27/23 13:35 diazepam [From Valium] Allergy Verified 10/27/23 13:35 ibuprofen [From Motrin] Allergy Verified 10/27/23 13:35 menthol Allergy Verified 10/27/23 13:35 morphine Allergy Verified 10/27/23 13:35 nitrofurantoin Allergy Verified 10/27/23 13:35 [From Macrobid] ondansetron [From Zofran] Allergy Verified 10/27/23 13:35 propoxyphene Allergy Verified 10/27/23 13:35 sulfamethoxazole Allergy Verified 10/27/23 13:35 [From Bactrim] trimethoprim [From Bactrim] Allergy Verified 10/27/23 13:35 Discharge Plan Disposition Patient Disposition: er Intermediate Care Fac Condition: Fair Discharge Order Discharge Orders: Discharge Order (Routine); Ordered 11/03/23 Ordered By: Ilan Frye Follow up Plan Follow up with: Dre Thibodeaux MD [Staff Physician] - 11/17/23 2:30 pm Prescriptions/Medication Reconciliation: Continued calcium carbonate [Calcium 600] 600 mg calcium (1,500 mg) tablet 600 mg PO DAILY sennosides-docusate sodium [Senna-S] 8.6-50 mg tablet 1 tab PO BID melatonin 3 mg capsule 3 mg PO HS acetaminophen 500 mg tablet 500 mg PO QIDP PRN (Reason: Mild Pain (Scale Score 1-4)) alendronate 35 mg tablet 35 mg PO MATUTE anastrozole 1 mg tablet 1 mg PO DAILY atorvastatin 20 mg tablet 20 mg PO HS trazodone 50 mg tablet 12.5 mg PO HS omeprazole 20 mg capsule,delayed release(DR/EC) 20 mg PO HS escitalopram oxalate 20 mg tablet 20 mg PO DAILY carvedilol 6.25 mg Tablet 6.25 mg PO BID Rx Instructions: must administer with a meal/food oxybutynin chloride 15 mg Tablet Extended Release 24hr 15 mg PO DAILY amlodipine 10 mg Tablet 10 mg PO DAILY ergocalciferol (vitamin D2) 1,250 mcg (50,000 unit) Capsule 1,250 mcg PO Q336H lactulose 20 gram/30 mL Solution 20 g PO DAILYP PRN (Reason: Constipation) Vitamin 27 mg iron- 800 mcg Tablet 1 ea PO 1700 Qty: 0 0RF Changed bumetanide 2 mg tablet 1 mg PO BID 30 Days Qty: 0 0RF Discontinued metoclopramide HCl 5 mg tablet 5 mg PO TID Problem Reconciliation Problems Reviewed?: Yes Patient Discharge Instructions ACTIVITY: Continue current activity DIET: continue same diet Patient Instructions: DI for Heart Failure, Chronic Kidney Disease, DI for Acute Kidney Injury, DI for Heart Failure Exacerbations Print Language: [place]i Providers Primary Care Provider: Caleb Sweeney Admit Provider: Ilan Frye Attending Provider: Ilan Frye
--- NOTE | 2023-11-03 11:42 | EXP.CARD.PN ---
Subjective Subjective Date: 11/03/23 Time: 09:00 Principal diagnosis: acute on chronic HFpEF Interval history: This is a 73-year-old patient who presented to the emergency department from [facility] due to shortness of breath and increased oxygen requirements. The patient was found to have acute on chronic HFpEF. She has been diuresed with IV Bumex and is feeling better this morning. She denies any chest pain or pressure. She states that her shortness of breath is improved and denies a cough. She denies any lower extremity edema. She denies any fever, chills, nausea, vomiting, diarrhea, PND orthopnea. However, she does have some underlying dementia and so her review of systems may not be accurate. Exam Data for Last 24 hours Vital signs and Labs for Last 24 Hours: Temp Pulse Resp BP Pulse Ox O2 Del Method O2 Flow Rate 97.8 F 64 18 134/51 L 97 Room Air 1 11/03/23 08:00 11/03/23 08:00 11/03/23 08:00 11/03/23 08:00 11/03/23 08:00 11/03/23 11:00 11/03/23 09:00 Laboratory Results - last 24 hr 11/02/23 11:39: POC Glucose 164 H 11/02/23 16:54: POC Glucose 205 H 11/02/23 20:14: POC Glucose 150 H 11/03/23 05:26: POC Glucose 137 H 11/03/23 06:38: WBC 7.1, RBC 2.43 L, Hgb 7.7 L, Hct 23.9 L, MCV 98.4, MCH 31.6 H, MCHC 32.1, RDW 13.9, Plt Count 350, MPV 7.4, Neut % (Auto) 59.1, Lymph % (Auto) 31.5, [place] % (Auto) 6.1, Eos % (Auto) 2.8, Baso % (Auto) 0.5, Neut # (Auto) 4.2, Lymph # (Auto) 2.2, [place] # (Auto) 0.4, Eos # (Auto) 0.2, Baso # (Auto) 0.0, Sodium 136, Potassium 4.1, Chloride 104, Carbon Dioxide 30, Anion Gap 6.1, BUN 65 H, Creatinine 3.40 H, Estimated Creat Clear 13, Estimated GFR 13 L*, Est GFR ( Amer) 16 L*, Glucose 113 H, Calcium 8.6, Magnesium 2.0, Total Bilirubin 0.3, AST 24, ALT 14, Alkaline Phosphatase 59, Total Protein 5.4 L, Albumin 2.8 L, Globulin 2.6, Albumin/Globulin Ratio 1.1, Triglycerides 81, Cholesterol 120 L, LDL Cholesterol Direct 52.58 L, VLDL Cholesterol 16, HDL Cholesterol 40, Cholesterol/HDL Ratio 3.0 I & O for Last 24 hours: Intake & Output 10/31/23 11/01/23 11/02/23 11/03/23 23:59 23:59 23:59 23:59 Intake Total 780 / 1180 940 / 940 60 / 60 Output Total 800 / 800 1600 / 1600 1350 / 1350 250 / 250 Balance -800 / -600 -820 / -420 -410 / -410 -190 / -190 Weight 132 lb 11.2 oz 138 lb 1.6 oz 134 lb 7.712 oz 128 lb 8 oz Constitutional Constitutional: no acute distress and average body habitus *Routine HEENT Exam Head: Present normocephalic and atraumatic ENT: Present mucous membranes moist *Routine Neck Exam Neck: Present supple, full ROM and normal carotid upstroke; Absent JVD, carotid bruit or lymphadenopathy *Routine Respiratory Exam Respiratory: Present CTA bilaterally, normal respiratory effort, able to speak in complete sentences and symmetric chest movement *Routine Cardiovascular Exam Cardiovascular: Present RRR, Normal S1 and Normal S2; Absent murmur or gallop *Routine Abdominal Exam Abdominal: Present soft and normoactive bowel sounds; Absent tenderness, distended or organomegaly *Routine Extremities Exam Extremities: Present pulses intact and normal capillary refill; Absent cyanosis, clubbing or edema *Routine Skin Exam Skin: Present intact and warm; Absent erythema *Routine Neurological Exam Neurological: Present alert, oriented X3 and CN II-XII intact; Absent sensory deficit or motor deficit Routine Psychiatric Exam Psychiatric: Present normal affect Progress Note: A&P Assessment and plan (1) (HFpEF) heart failure with preserved ejection fraction: Status: Acute (2) Stage 4 chronic kidney disease: Status: Chronic (3) HTN (hypertension): Status: Acute (4) Anemia: Status: Acute (5) Dementia: Status: Acute (6) Bilateral pleural effusion: Status: Acute (7) HLD (hyperlipidemia): Status: Acute (8) Diabetes mellitus type 2 in obese: Status: Acute (9) Volume overload: Status: Resolved (10) Pulmonary edema: Status: Resolved (11) Functional quadriplegia: Status: Acute (12) Hypoxemia: Status: Acute (13) MADAY (acute kidney injury): Status: Acute Assessment and Plan Assessment and Plan for All Diagnoses:: Plan: 1. The patient is admitted to the hospital for acute on chronic HFpEF exacerbation. She has been diuresed with IV Bumex. Will convert her over to Bumex 1 mg p.o. daily. 2. The patient had an echocardiogram which shows an ejection fraction of 70%. The patient is a little bit hyperdynamic during her echocardiogram which was concerning that she may have been a little over diuresed so her Bumex was cut back yesterday. She still had a negative fluid balance overnight. 3. Her renal function is stable this morning at 3.4 which is stable this admission. She came in with a renal function of 3.3. 4. She denies any chest pain or pressure. The patient did have a slight elevation in her troponin at 0.04 x 2. She would benefit from an ischemic evaluation on an outpatient basis once she has been discharged from the hospital. 5. Her blood pressure is well-controlled. Continue amlodipine and carvedilol. 6. Her LDL goal is less than 55. Her LDL is 52. She is on a statin. 7. No ANAND/ARB due to her renal function. 8. Consider Jardiance/Farxiga once she is euvolemic on an outpatient basis. 9. The patient is stable for discharge back to the nursing facility today from a cardiac standpoint. She can be discharged on the following cardiac medications: Norvasc 10 mg p.o. daily, Lipitor 20 mg p.o. nightly, Bumex 1 mg p.o. twice daily, Coreg 6.25 mg p.o. twice daily. Thank you for the opportunity to help participate in the care of this patient. All recommendations and orders are per Dr. Thibodeaux.
== END 2023-11-03 12:51 | DRG 291 ==
LOC: ER 15:15 → 2ND 17:05
PROVIDERS: Nurse Practitioner Family; Admitting Provider Internal Medicine Adolescent Medicine; Emergency Provider Emergency Medicine; PCP Family Medicine; Visit Provider Internal Medicine Adolescent Medicine
DX: I13.0 Hypertensive heart and chronic kidney disease with heart failure and stage 1 through stage 4 chronic kidney disease, or unspecified chronic kidney disease (principal); I50.33 Acute on chronic diastolic (congestive) heart failure; R53.2 Functional quadriplegia; J81.1 Chronic pulmonary edema; N17.9 Acute kidney failure, unspecified; N39.0 Urinary tract infection, site not specified; N18.4 Chronic kidney disease, stage 4 (severe); F03.90 Unspecified dementia, unspecified severity, without behavioral disturbance, psychotic disturbance, mood disturbance, and anxiety; D63.1 Anemia in chronic kidney disease; Z66 Do not resuscitate; E66.9 Obesity, unspecified; Z68.25 Body mass index [BMI] 25.0-25.9, adult; E78.2 Mixed hyperlipidemia
CPT/HCPCS: 36415; 71045; 80048; 80053; 80061; 81001; 82803; 82962; 83036; 83605; 83735; 83880; 84484; 85025; 85378; 93005; 93308; 99291; 99292; J1644; J1650; J1939

== ENCOUNTER 2023-11-30 15:45 | Outpatient (CLI) | payer MEDICARE, MEDICAID, SELFPAY ==
[2023-11-30 16:11] LABS: Basophils % 0.5 % (0.1-2.0); Eosinophils # 0.1 K/mm3 (0.0-0.4); Eosinophils % 1.3 % (0.1-12.0); Hematocrit 28.1 % (37.0-47.0); Hemoglobin 9.8 g/dL (12.2-16.2); Lymphocytes # 2.2 K/mm3 (0.7-4.5); Lymphocytes % 28.2 % (10-50); Mean Corpuscular HGB Conc 34.7 g/dL (31.8-35.4); Mean Corpuscular Hemoglobin 31.9 pg (27.0-31.2); Mean Corpuscular Volume 92.1 fl (81-99); Mean Platelet Volume 8.4 fl (7.4-10.4); Monocytes # 0.4 K/mm3 (0.1-1.0); Monocytes % 5.2 % (1.7-9.3); Neutrophils # 5.2 K/mm3 (1.8-7.8); Neutrophils % 64.9 % (37.0-80.0); Platelet Count 278 K/mm3 (142-424); Red Blood Count 3.06 M/mm3 (4.20-5.40); Red Cell Distribution Width 14.5 % (11.5-17.5); White Blood Count 7.9 K/mm3 (4.8-10.8)
[2023-11-30 16:20] LABS: Albumin Level 3.8 g/dl (3.5-5.0); Chloride 101 mmol/L (98-107)
[2023-11-30 16:21] LABS: Potassium 4.7 mmoL/L (3.5-5.1); Sodium 134 mmol/L (136-145)
[2023-11-30 16:23] LABS: Alanine Aminotransferase 24 U/L (12-78); Anion Gap 9.7 mEq/L (5-15); Aspartate Amino Transferase 32 U/L (14-36); Bilirubin,Unconjugated 0.1 mg/dL (0.0-1.1); Blood Urea Nitrogen 57 mg/dl (7-17); Carbon Dioxide 28 mmol/L (22.0-30.0); Estimated Glomerular Filt Rate 16 ml/min (>60); GFR (African American) 19 ML/MIN (>60)
[2023-11-30 16:24] LABS: Alkaline Phosphatase 81 U/L (38-126); Bilirubin,Direct 0.3 mg/dl (0.0-0.4); Bilirubin,Indirect 0.1 mg/dL (0.0-0.9); Bilirubin,Total 0.4 mg/dl (0.2-1.3); Calcium 9.4 mg/dl (8.4-10.2); Chol/HDL Ratio 2.9 (1-3.5); Cholesterol 163 mg/dl (140-200); Glucose 163 mg/dl (74-100); HDL Cholesterol 57 mg/dl (40-60); Triglycerides 108 mg/dl (30-150); VLDL Cholesterol 22 mg/dL (0-40)
[2023-11-30 16:35] LABS: Direct LDL Cholesterol 51.46 mg/dL (100-129)
[2023-11-30 16:54] LABS: Thyroid Stimulating Hormone 2.32 uIU/mL (0.465-4.68)
[2023-11-30 17:38] LABS: Free T4 (Free Thyroxine) 0.93 ng/dl (0.78-2.19)
== END 2023-11-30 23:59 | disposition home or self-care (01) ==
LOC: LAB 15:47
PROVIDERS: PCP Family Medicine; Visit Provider Internal Medicine
DX: E78.2 Mixed hyperlipidemia (principal); I50.33 Acute on chronic diastolic (congestive) heart failure; N18.4 Chronic kidney disease, stage 4 (severe)
CPT/HCPCS: 36415; 80048; 80061; 80076; 83735; 84439; 84443; 85025

== ENCOUNTER 2024-02-01 15:06 | Outpatient (CLI) | payer MEDICARE, MEDICAID, SELFPAY ==
[2024-02-01 15:45] LABS: Basophils # 0.1 K/mm3 (0-0.2); Basophils % 0.6 % (0.1-2.0); Eosinophils # 0.1 K/mm3 (0.0-0.4); Eosinophils % 1.8 % (0.1-12.0); Hematocrit 28.8 % (37.0-47.0); Hemoglobin 9.9 g/dL (12.2-16.2); Lymphocytes # 2.2 K/mm3 (0.7-4.5); Lymphocytes % 29.3 % (10-50); Mean Corpuscular HGB Conc 34.3 g/dL (31.8-35.4); Mean Corpuscular Hemoglobin 31.6 pg (27.0-31.2); Mean Corpuscular Volume 92.3 fl (81-99); Mean Platelet Volume 8.1 fl (7.4-10.4); Monocytes # 0.4 K/mm3 (0.1-1.0); Monocytes % 5.1 % (1.7-9.3); Neutrophils # 4.8 K/mm3 (1.8-7.8); Neutrophils % 63.3 % (37.0-80.0); Platelet Count 275 K/mm3 (142-424); Red Blood Count 3.11 M/mm3 (4.20-5.40); Red Cell Distribution Width 13.9 % (11.5-17.5); White Blood Count 7.5 K/mm3 (4.8-10.8)
[2024-02-01 16:01] LABS: Alanine Aminotransferase 17 U/L (12-78); Albumin Level 3.7 g/dl (3.5-5.0); Alkaline Phosphatase 74 U/L (38-126); Aspartate Amino Transferase 23 U/L (14-36); Bilirubin,Direct 0.3 mg/dl (0.0-0.4); Bilirubin,Total 0.3 mg/dl (0.2-1.3); Blood Urea Nitrogen 69 mg/dl (7-17); Calcium 9.4 mg/dl (8.4-10.2); Carbon Dioxide 27 mmol/L (22.0-30.0); Chloride 102 mmol/L (98-107); Chol/HDL Ratio 4.3 (1-3.5); Cholesterol 204 mg/dl (140-200); Estimated Glomerular Filt Rate 14 ml/min (>60); GFR (African American) 16 ML/MIN (>60); Glucose 240 mg/dl (74-100); HDL Cholesterol 48 mg/dl (40-60); Magnesium 2.1 mg/dl (1.6-2.3); Potassium 4.6 mmoL/L (3.5-5.1); Total Protein,Serum 6.5 g/dl (6.3-8.2); Triglycerides 151 mg/dl (30-150); VLDL Cholesterol 30 mg/dL (0-40)
[2024-02-01 16:02] LABS: Anion Gap 12.6 mEq/L (5-15); Sodium 137 mmol/L (136-145)
[2024-02-01 16:14] LABS: Direct LDL Cholesterol 99.86 mg/dL (100-129)
[2024-02-01 16:21] LABS: Free T4 (Free Thyroxine) 0.93 ng/dl (0.78-2.19)
[2024-02-01 16:36] LABS: Thyroid Stimulating Hormone 2.58 uIU/mL (0.465-4.68)
== END 2024-02-01 23:59 | disposition home or self-care (01) ==
PROVIDERS: PCP Pediatrics; Visit Provider Internal Medicine
DX: I50.33 Acute on chronic diastolic (congestive) heart failure (principal); E78.2 Mixed hyperlipidemia; N18.4 Chronic kidney disease, stage 4 (severe)
CPT/HCPCS: 36415; 80048; 80061; 80076; 83735; 84439; 84443; 85025

== ENCOUNTER 2024-03-28 13:36 | Outpatient (CLI) | payer MEDICARE, MEDICAID, SELFPAY ==
[2024-03-28 13:56] LABS: Basophils % 0.4 % (0.1-2.0); Eosinophils # 0.1 K/mm3 (0.0-0.4); Eosinophils % 1.7 % (0.1-12.0); Hematocrit 29.2 % (37.0-47.0); Hemoglobin 9.4 g/dL (12.2-16.2); Lymphocytes # 1.6 K/mm3 (0.7-4.5); Lymphocytes % 21.3 % (10-50); Mean Corpuscular HGB Conc 32.2 g/dL (31.8-35.4); Mean Corpuscular Hemoglobin 30.1 pg (27.0-31.2); Mean Corpuscular Volume 93.6 fl (81-99); Monocytes # 0.4 K/mm3 (0.1-1.0); Monocytes % 5.3 % (1.7-9.3); Neutrophils # 5.5 K/mm3 (1.8-7.8); Platelet Count 252 K/mm3 (142-424); Red Blood Count 3.12 M/mm3 (4.20-5.40); Red Cell Distribution Width 13.1 % (11.5-17.5); White Blood Count 7.7 K/mm3 (4.8-10.8)
[2024-03-28 15:13] LABS: Alanine Aminotransferase 18 U/L (12-78); Alkaline Phosphatase 77 U/L (38-126); Anion Gap 18.4 mEq/L (5-15); Aspartate Amino Transferase 25 U/L (14-36); Bilirubin,Direct 0.3 mg/dl (0.0-0.4); Bilirubin,Total 0.3 mg/dl (0.2-1.3); Blood Urea Nitrogen 64 mg/dl (7-17); Calcium 9.3 mg/dl (8.4-10.2); Carbon Dioxide 26 mmol/L (22.0-30.0); Chloride 98 mmol/L (98-107); Chol/HDL Ratio 4.5 (1-3.5); Cholesterol 213 mg/dl (140-200); Estimated Glomerular Filt Rate 14 ml/min (>60); GFR (African American) 16 ML/MIN (>60); Glucose 245 mg/dl (74-100); HDL Cholesterol 47 mg/dl (40-60); Magnesium 2.1 mg/dl (1.6-2.3); Potassium 4.4 mmoL/L (3.5-5.1); Sodium 138 mmol/L (136-145); Total Protein,Serum 6.8 g/dl (6.3-8.2); Triglycerides 116 mg/dl (30-150); VLDL Cholesterol 23 mg/dL (0-40)
[2024-03-28 15:24] LABS: Direct LDL Cholesterol 97.37 mg/dL (100-129)
[2024-03-28 15:29] LABS: Free T4 (Free Thyroxine) 0.94 ng/dl (0.78-2.19)
[2024-03-28 15:44] LABS: Thyroid Stimulating Hormone 2.26 uIU/mL (0.465-4.68)
== END 2024-03-28 23:59 | disposition home or self-care (01) ==
LOC: LAB 13:37
PROVIDERS: PCP Pediatrics; Visit Provider Internal Medicine
DX: E78.2 Mixed hyperlipidemia (principal); I50.33 Acute on chronic diastolic (congestive) heart failure; N18.4 Chronic kidney disease, stage 4 (severe); I10 Essential (primary) hypertension; E11.69 Type 2 diabetes mellitus with other specified complication; E66.9 Obesity, unspecified; R41.89 Other symptoms and signs involving cognitive functions and awareness
CPT/HCPCS: 36415; 80048; 80061; 80076; 83735; 84439; 84443; 85025